=== PATIENT | female | born 1990 | race Caucasian/White ===

== ENCOUNTER 2020-05-22 19:28 | Emergency (ER) | payer OTHER ==
--- OUTSIDE RECORDS SUMMARY | 2020-05-22 19:29 | XMS REPORT | Summary of Care ---
:1990 Author Organization [facility] Address [address] [place] [address] Care Team Providers Name Role Phone Vic Mcdonnell Primary Care Provider Encounter Details Date Type Department Care Team Description 03/02/2020 Letter (Out) ACCESS CENTER Belgica Dean, RN [address] [place] [phone] [place] [address] Allergies Active Allergy Reactions Severity Noted Date Comments Penicillins Hives 12/13/2014 documented as of this encounter (statuses as of 03/02/2020) Medications Medication Sig Dispensed Refills Start Date End Date Status traMADOL (ULTRAM) 50 Take 100 mg by 0 Active mg tablet mouth every 6 (six) hours as needed. dextroamphetamine-amph Take 30 mg by 0 Active etamine (ADDERALL) 30 mouth daily. mg tablet ALPRAZolam (XANAX) 2 Take 2 mg by mouth 0 Active mg tablet as needed for Sleep. naproxen 500 mg Take 500 mg by 0 Active tabletIndications: mouth 2 (two) abdominal/camp guard 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 Indications: abdominal/camp guard pain documented as of this encounter (statuses as of 03/02/2020) Active Problems Problem Noted Date Chronic pelvic pain in female 10/17/2015 documented as of this encounter (statuses as of 03/02/2020) Social History Tobacco Use Types Packs/Day Years Used Date Former Smoker Smokeless Tobacco: Never Used Comments: 4 ppy Alcohol Use Drinks/Week oz/Week Comments No 0 Standard drinks or equivalent 0.0 Sex Assigned at Date Recorded Not on file COVID-19 Exposure Response Date Recorded In the last month, have you been in contact with No / Unsure 02/29/2020 8:56 AM CDT someone who was confirmed or suspected to have Coronavirus / COVID-19? documented as of this encounter Last Filed Vital Signs Not on filedocumented in this encounter Plan of Treatment Date Type Specialty Care Team Description 03/04/2020 Hospital Encounter Surgery Cristobal Vallejo MD [address] [place] [address] [phone] 03/04/2020 Anesthesia Event Surgery Zach Onofre C [address] 77 [phone] 03/04/2020 Surgery Surgery Andriy Vallejo MD [facility] [address] [place] [address] [phone] Health Maintenance Due Date Last Done Comments VARICELLA VACCINES (1 of 2 - 11/29/1991 2-dose childhood series) Depression Screening 2002 DTaP,Tdap,and Td Vaccines (1 - 2009 Tdap) PAP SMEAR 11/29/2011 INFLUENZA VACCINE (#1) 2020 PNEUMOCOCCAL 0-64 YEARS COMBINED Aged Out No longer eligible based on SERIES patient's age to complete this topic documented as of this encounter Results Not on filedocumented in this encounter Insurance Payer Benefit Plan / Subscriber ID Effective Phone Address Michelle [employer] Group Dates [facility] [id number] 2017-Rui [phone] [address] [employer] [facility] [employer] nt [phone] [place] [address] documented as of this encounter
--- OUTSIDE RECORDS SUMMARY | 2020-05-22 19:29 | XMS REPORT | Continuity of Care Document ---
:1990 Author Organization [facility] t Address [address] [place] [address] Care Team Providers Name Role Phone Genevieve WEST, Jacque Attending Clinician Jermaine JARAMILLO, Belgica Martinez Attending Clinician Unavailable Shannan, Paty Main Attending Clinician Unavailable Genevieve WEST Admitting Clinician Problems This patient has no known problems. Allergies, Adverse Reactions, Alerts This patient has no known allergies or adverse reactions. Medications This patient has no known medications. Procedures This patient has no known procedures. 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
--- OUTSIDE RECORDS SUMMARY | 2020-05-22 19:29 | XMS REPORT | Summary of Care ---
:1990 Author Organization [facility] Address [address] [place] [address] Care Team Providers Name Role Phone Vic Mcdonnell Primary Care Provider Reason for Visit Reason Comments LAB WORK Auth/Cert Status Reason Specialty Diagnoses / Referred By Referred To Procedures Contact Contact Clinical Medical Diagnoses Endometriosis of pelvic peritoneum Endometriosis of pelvic peritoneum [N80.3] [facility] Lab Laboratory Procedures COVID-19 (ID NOW RAPID TESTING) COVID-19 (ID NOW RAPID TESTING) [[id number]] [address] [place] [address] Encounter Details Date Type Department Care Team Description 02/29/2020 Postdoctoral Research Associate Visit [facility] Gibran Vallejo MD [address] [place] [address] Pre-op testing Professional Office Pob, Adc Lab Main (Primary Dx) Building Phlebotomy Lab Professional Office Building [address] [facility] , [address] [place] [address] Allergies Active Allergy Reactions Severity Noted Date Comments Penicillins Hives 12/13/2014 documented as of this encounter (statuses as of 02/29/2020) Medications Medication Sig Dispensed Refills Start Date [...] by 0 Active tabletIndications: mouth 2 (two) 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 Indications: abdominal/marketing communications specialist pain documented as of this encounter (statuses as of 02/29/2020) Active Problems Problem Noted Date Chronic pelvic pain in female 10/17/2015 documented as of this encounter (statuses as of 02/29/2020) Social History Tobacco Use Types Packs/Day Years [...] Signs Not on filedocumented in this encounter Nursing Notes Kaity Le - 02/29/2020 8:45 AM CDT Venipuncture collection performed by clean technique on the left forearm(s). Total of 1 attempts were made. Slight pressure and a bandage/dressing were applied to the site(s). The patient experienced no complications. The following specimens were processed according to instructions and sent to [facility] laboratories per lab order on 02/29/20: LT BLUE SST RED 1 LAV PPT DK GREEN (LiHep) DK GREEN (SodH) ROSALES DK BLUE (K2) DK BLUE (S) ACD Blood Culture NIPT/NTD Patient has been identified by and name and was provided with cup, antiseptic towelette, and clean catch instructions. 1 urine specimen(s) sent. 1 Unpreserved Urine Culture Aptima tube Other urine documented in this encounter Plan of Treatment Date Type Specialty Care Team Description 03/04/2020 Hospital Encounter Surgery Cristobal Vallejo MD [address] [place] [address] [phone] 03/04/2020 Anesthesia Event Surgery Zach Onofre, [place] [address] [place], [place] [address] [phone] 03/04/2020 Surgery Surgery Andriy Vallejo MD [facility] [address] [place] [address] [phone] Name Type Priority Associated Diagnoses Date/Ti me COVID-19 (PCR MOLECULAR LAB Routine Pre-op testing 9:23 AM CDT TESTING) URINALYSIS LAB Routine Pre-op testing 02/29/2020 9 :20 AM CDT Name Type Priority Associated Diagnoses Order S chedule COVID-19 (PCR MOLECULAR LAB Routine Pre-op testing Ex pected: 02/29/2020, TESTING) Expires: 2020 URINALYSIS LAB Routine Pre-op testing Expected: 09/2019, Expires: 2020 Type and Screen - LAB Routine Pre-op testing Expected : 02/29/2020, Expires: 2020 Health Maintenance Due Date Last Done Comments VARICELLA VACCINES (1 of 2 - 11/29/1991 2-dose childhood series) Depression Screening 2002 DTaP,Tdap,and Td Vaccines (1 - 2009 Tdap) PAP SMEAR 11/29/2011 INFLUENZA VACCINE (#1) 2020 PNEUMOCOCCAL 0-64 YEARS COMBINED Aged Out No longer eligible based on SERIES patient's age to complete this topic documented as of this encounter Procedures Procedure Name Priority Date/Time Associated Diagnosis Comme nts CBC WITH DIFF Routine 02/29/2020 9:32 AM Pre-op testing Resul ts for this CDT procedure are i n the results section . documented in this encounter Results CBC WITH DIFF (02/29/2020 9:32 AM CDT) Pathologist Sig nature WBC 5.70 4.30 - 11.10 [facility] 10*3/L [facility] RBC 4.87 3.93 - 5.25 [facility] 10*6/L [facility] HGB 14.3 11.6 - 15.0 [facility] g/dL HOSPITAL LAB[facility] HCT 44.6 35.7 - 45.2 % [facility] MCV 91.6 80.6 - 95.[address] [facility] MCH 29.4 25.9 - 32.[address] [facility] MCHC 32.1 31.6 - 35.1 [facility] g/dL [facility] RDW-SD 44.7 39.0 - 49.[address] [facility] RDW-CV 13.2 12.0 - 15.5 % [facility] PLT 319 166 - 358 [facility] 10*3/L [facility] MPV 10.3 9.5 - 12.[address] [facility] NRBC/100 WBC 0.0 0.0 - 10.0 /100 [facility] WBCs [facility] NRBC x10^3 <0.01 10*3/L [facility] GRAN MAT (NEUT) % 51.3 % [facility] IMM GRAN % 0.40 % [facility] LYMPH % 36.0 % [facility] MONO % 8.6 % [facility] EOS % 1.9 % [facility] BASO % 1.8 % [facility] GRAN MAT x10^3(ANC) 2.93 1.88 - 7.09 [facility] 10*3/uL [facility] IMM GRAN x10^3 <0.03 0.00 - 0.06 [facility] 10*3/uL [facility] LYMPH x10^3 2.05 1.32 - 3.29 [facility] 10*3/uL [facility] MONO x10^3 0.49 0.33 - 0.92 [facility] 10*3/uL [facility] EOS x10^3 0.11 0.03 - 0.39 [facility] 10*3/uL [facility] BASO x10^3 0.10 (H) 0.01 - 0.07 [place] [address]*3/uL [facility] Specimen Blood Performing Organization Address City/State/Zipcode Phone Number [facility] CLIA: [id number] [place] [address] documented in this encounter Visit Diagnoses Diagnosis Pre-op testing - Primary Preoperative examination, unspecified Endometriosis of pelvic peritoneum Abdominal pain, left lower quadrant documented in this encounter Insurance Payer Benefit Plan / Subscriber ID Effective Phone Address [employer] Group Dates HIM [facility] [id number] 2017-Rui [phone] [address] [employer] [phone] [place] [address] ([place]) [place] [address] documented as of this encounter
--- OUTSIDE RECORDS SUMMARY | 2020-05-22 19:29 | XMS REPORT | Summary of Care ---
:1990 Author Organization [facility] Address [address] [place] [address] Care Team Providers Name Role Phone Vic Mcdonnell Primary Care Provider Reason for Visit Reason Comments LAB WORK Auth/Cert Status Reason Specialty Diagnoses / Referred By Referred To Procedures Contact Contact Clinical Medical Diagnoses Endometriosis of pelvic peritoneum Endometriosis of pelvic peritoneum [N80.3] [facility] Lab Laboratory Procedures COVID-19 (ID NOW RAPID TESTING) COVID-19 (ID NOW RAPID TESTING) [[id number]] [address] [place] [address] Encounter Details Date Type Department Care Team Description 02/29/2020 Laboratory Only [facility] Andriy Vallejo MD [address] [place] [address] Pre-operative Phlebotomy Only, [facility] Test clearance [facility] [address] [place] [address] Allergies Active Allergy Reactions Severity [...] by 0 Active tabletIndications: mouth 2 (two) abdominal/groundskeeper porter 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 Indications: abdominal/groundskeeper porter pain documented as of this encounter (statuses [...] encounter Nursing Notes Kaity Le - 02/29/2020 8:30 AM CDTcovid documented in this encounter Plan of Treatment Date Type Specialty Care Team Description 03/04/2020 Hospital Encounter Surgery Cristobal Vallejo MD [address] [place] [address] 03/04/2020 Anesthesia Event Surgery Zach Onofre, [place] [address] 77 [phone] 03/04/2020 Surgery Surgery Andriy Vallejo MD [facility] [address] [place] [address] [phone] Health Maintenance Due Date Last Done Comments [...] Results Not on filedocumented in this encounter Visit Diagnoses Diagnosis Pre-operative clearance Preoperative examination, unspecified Endometriosis of pelvic peritoneum Abdominal pain, left lower quadrant documented in this encounter Additional Health Concerns Infection Onset Date Last Indicated Resolved Time COVID-19 Rule Out 02/29/2020 02/29/2020 documented as of this encounter Insurance Payer Benefit Plan / Subscriber ID Effective Phone Address T [facility] Group Dates [facility] [id number] [facility] [phone] [address] [employer] [facility] [address] [facility] [phone] [place] [address] (Home) [place] [address] documented as of this encounter
--- OUTSIDE RECORDS SUMMARY | 2020-05-22 19:29 | XMS REPORT | Summary of Care ---
:1990 Author Organization [facility] Address [address] [place] [address] Care Team Providers Name Role Phone Vic Mcdonnell Primary Care Provider Reason for Visit Reason Comments LAB WORK Auth/Cert Status Reason Specialty Diagnoses / Referred By Referred To Procedures Contact Contact Clinical Medical Diagnoses Endometriosis of pelvic peritoneum Endometriosis of pelvic peritoneum [N80.3] [facility] Lab Laboratory Procedures COVID-19 (ID NOW RAPID TESTING) COVID-19 (ID NOW RAPID TESTING) [[id number]] [address] [place] [address] Encounter Details Date Type Department Care Team Description 02/29/2020 Residence Supervisor Visit [facility] Gibran Vallejo MD [address] [place] [address] Pre-op testing Professional Office Pob, Adc Lab Main (Primary Dx) Building Phlebotomy Lab Professional Office Building [address] [facility] , [address] [place] [address] Allergies Active Allergy Reactions Severity [...] by 0 Active tabletIndications: mouth 2 (two) 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 Indications: abdominal/inspector missile pain documented as of this encounter (statuses [...] processed according to instructions and sent to [facility] laboratories per lab order on 02/29/20: LT [...] 03/04/2020 Hospital Encounter Surgery Cristobal Vallejo MD [address] [place] [address] [phone] 03/04/2020 Anesthesia Event Surgery Zach Onofre, [place] [address] [place], [place] [phone] 03/04/2020 Surgery Surgery Andriy Vallejo MD [facility] [address] [place] [address] [phone] Name Type Priority Associated Diagnoses Date/Ti me COVID-19 (PCR MOLECULAR LAB Routine Pre-op testing 9:23 AM CDT TESTING) Name Type Priority Associated Diagnoses Order S [...] Sig nature WBC 5.70 4.30 - 11.10 [facility] 10*3/L [facility] RBC 4.87 3.93 - 5.25 [facility] 10*6/L [facility] HGB 14.3 11.6 - 15.0 [facility] g/dL HOSPITAL LAB[facility]ATORY HCT 44.6 35.7 - 45.2 % [facility] MCV 91.6 80.6 - 95.5 fL [facility] MCH 29.4 25.9 - 32.8 pg [facility] MCHC 32.1 31.6 - 35.1 [facility] g/dL [facility] RDW-SD 44.7 39.0 - 49.9 fL [facility] RDW-CV 13.2 12.0 - 15.5 % [facility] PLT 319 166 - 358 [facility] 10*3/L [facility] MPV 10.3 9.5 - 12.9 fL [facility] NRBC/100 WBC 0.0 0.0 - 10.0 /100 [facility] WBCs [facility] NRBC x10^3 <0.01 10*3/L [facility] GRAN MAT (NEUT) % 51.3 % [facility] IMM GRAN % 0.40 % [facility] LYMPH % 36.0 % [facility] MONO % 8.6 % [facility] EOS % 1.9 % [facility] BASO % 1.8 % [facility] GRAN MAT x10^3(ANC) 2.93 1.88 - 7.09 [facility] 10*3/uL [facility] IMM GRAN x10^3 <0.03 0.00 - 0.06 [facility] 10*3/uL [facility] LYMPH x10^3 2.05 1.32 - 3.29 [facility] 10*3/uL [facility] MONO x10^3 0.49 0.33 - 0.92 [facility] 10*3/uL [facility] EOS x10^3 0.11 0.03 - 0.39 [facility] 10*3/uL [facility] BASO x10^3 0.10 (H) 0.01 - 0.07 [facility] 10*3/uL [facility] Specimen Blood Performing Organization Address City/State/Zipcode Phone Number [facility] CLIA: [id number] [place] [address] documented in this encounter Visit Diagnoses Diagnosis Pre-op testing - Primary Preoperative examination, unspecified Endometriosis of pelvic peritoneum Abdominal pain, left lower quadrant documented in this encounter Insurance Payer Benefit Plan / Subscriber ID Effective Phone Address T [employer]pe Group Dates HIM [facility] [id number] 2017-Rui [phone] [address] [employer] [phone] [place] [address] documented as of this encounter
--- OUTSIDE RECORDS SUMMARY | 2020-05-22 19:30 | XMS REPORT | Summary of Care ---
:1990 Author Organization [facility] - Health Address [address] [place] [id number] Care Team Providers Name Role Phone Vic Mcdonnell Primary Care Provider Reason for Visit Auth/Cert Status Reason Specialty Diagnoses / Procedures Referred By [place]wick ontact Referred To Contact Surgery Diagnoses Endometriosis of pelvic peritoneum Left lower quadrant pain Endometriosis of pelvic peritoneum [N80.3] Abdominal pain, left lower quadrant [R10.32] Adc Pre/P acu/Post Procedures [facility] CODING HELP ND LAP,FULGURATE/EXCISE LESIONS ND REOPEN FALLOPIAN TUBE,CHROMOTUBATION SALPINGECTOMY 04017 - ND LAP,FULGURATE/EXCISE LESIONS 19824 - ND REOPEN FALLOPIAN TUBE,CHROMOTUBATION [address] [place], [place] [address] Phone: Fax: Encounter Details Date Type Department Care Team Description 03/04/2020 Hospital Encounter [facility] [place], Abdomina l pain, left [facility] MD Jacque lower quadrant [address] [facility] [address] [place] [address] [place], [place] [id number] Allergies Active Allergy Reactions Severity Noted Date Comments Penicillins Hives 12/13/2014 documented as of this encounter (statuses as of 03/05/2020) Medications Medication Sig Dispensed Refills Start Date [...] by 0 Active tabletIndications: mouth 2 (two) 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 documented as of this encounter (statuses as of 03/05/2020) Active Problems Problem Noted Date Abdominal pain, left lower quadrant 03/04/2020 Endometriosis of the cul-de-sac 03/04/2020 Secondary dysmenorrhea 03/04/2020 Irregular bleeding, encased IUD 03/04/2020 Chronic pelvic pain in female 10/17/2015 documented as of this encounter (statuses as of 03/05/2020) Social History Tobacco Use Types Packs/Day Years Used Date Former Smoker Smokeless Tobacco: Never Used Comments: 4 ppy Alcohol Use Drinks/Week oz/Week Comments No 0 Standard drinks or equivalent 0.0 Sex Assigned at Date Recorded Not on file COVID-19 Exposure Response Date Recorded In the last month, have you been in contact with No / Unsure 03/04/2020 7:02 AM CDT someone who was confirmed or suspected to have Coronavirus / COVID-19? documented as of this encounter Last Filed Vital Signs Vital Sign Reading Time Taken Comments Blood Pressure 99/62 03/04/2020 12:00 PM CDT Pulse 59 03/04/2020 10:18 AM CDT Temperature 36.2 C (97.2 F) 03/04/2020 10:18 AM CDT Respiratory Rate 20 03/04/2020 12:44 PM CDT Oxygen Saturation 99% 03/04/2020 12:44 PM CDT Inhaled Oxygen Concentration - - Weight 47.6 kg (104 lb 15 oz) 02/26/2020 1:31 PM CDT Height 160 cm (5' 2.99") 02/26/2020 1:31 PM CDT Body Mass Index 18.59 02/26/2020 1:31 PM CDT documented in this encounter Discharge Summaries Jacque Vallejo MD - 03/04/2020 10:37 AM CDTPatient recovered from GETA in the OR and sent to PACU. Stable hemodynamically. Pain and nausea control adequate. Has postop discharge instructions printed sheet given. Has postop appointment for office follow up made already. Discharge home, regular diet, ambulate as tolerated. All instructions when to call were given as well. documented in this encounter Discharge Instructions Bonita Bhatia RN - 03/04/2020 Patient Discharge Instructions Discharge date: 03/04/2020 Procedure(s): Procedure(s): SALPINGECTOMY INTRAUTERINE DEVICE REMOVAL LAPAROSCOPIC EXCISION OF ENDOMETRIOSIS HYSTEROSCOPY Discharge Orders ACTIVITY: As Tolerated Regular Diet; Texture: Regular Texture Regular Diabetic: No Follow instructions as indicated below: 1. The medication that was used will be acting in your system for the next 24 hours, so you might feel a little drowsy, with impaired judgment and or motor function. This feeling should go wear off. Because the medication is still in your system for the next 24 hours you SHOULD NOT: Drive a car, operate machinery or power tool. Drink any alcohol beverages (including beer or wine). Make any important decisions or sign any legal documents. 2. You should rest the remainder of the day and not engage in any physical activity. Move slowly today. After lying down, sit on the edge of the bed for a moment before standing. YOU ARE RESPONSIBLEFOR HAVING SOMEONE AT HOME WITH YOU DURING THE AFTERNOON AND NIGHT IMMEDIATELY FOLLOWING YOUR SURGERY. Patient should cough and deep breathe every 2-4 hours while awake to avoid respiratory complications. 4. Lifting: see handout 5. Weight: In general, sudden weight gains or losses should be reported to your provider. Cardiac patients should weigh daily and notify their provider for a weight gain of 3 pounds per day or 5 pounds per week. 6. Tobacco Avoidance: Follow recommendations below 7. Because the medications used could procedure some residual nausea and vomiting after you go home,you should eat lightly today, starting with clear liquids (broth, soft drinks, apple juice, jello) and toast or crackers, progressing to bland solid foods and then to your normal diet as tolerated, unle ss otherwise stated by your surgeon. If you get sick, wait a couple of hours and then begin to eat. After 24 hours the nausea should be gone. 8. You may experience some pain and your physician will advise you on what to take for discomfort. This should be taken as directed. If the pain is not relieved, contact your physician. You may alsohave a sore throat from the airway that was in place. You may uses lozenges, throat spray (such as C hloraseptic), or warm salt water gargles for symptomatic relief. 9. If you feel warm, take your temperature. If it is 101 degrees or above call your physician. 10. If you are unable to urinate within five hours after your procedure, call your physician. 11. The type of surgery performed will determine how much bleeding (if any) to expect. Normally, some spotting might occur. If your dressing pad becomes saturated, notify your physician. Elevate surgical site, if applicable, to reduced swelling and pain. 12. Wound/dressing care: see handout Tips on preventing a surgical site infection.. Dont smoke. It is best to quit at least 30 days before surgery, but quitting after surgery is also helpful. If you are diabetic, keep your blood sugar well controlled. WASH YOUR HANDS. Keep your wound clean and remember to wash your hands before and after contact with the area. All health care workers should also wash their hands or use an alcohol based hand rub prior to examining you. If antibiotics are prescribed, take them as directed. Finish the entire course of antibiotics. Call your doctor if you have signs of infection: ? Increased tenderness at the surgical site ? Red streaks or increased redness of the area ? Bad-smelling discharge from the incision ? Fever of 101F or higher ? General tired feeling that doesnt improve 13. Other discharge instructions: see handout Take Home Medications These are medications ordered for you by your healthcare provider. Do not take any other medications or supplements unless advised by your healthcare provider. Current Discharge Medication List CONTINUE these medications which have NOT CHANGED Details naproxen 500 mg tablet Take 500 mg by mouth 2 (two) times 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 dextroamphetamine-amphetamine (ADDERALL) 30 mg tablet Take 30 mg by mouth daily. traMADOL (ULTRAM) 50 mg tablet Take 100 mg by mouth every 6 (six) hours as needed. Follow-up appointments: Call Dr. Vallejo's office for follow up appt For questions regarding follow-up instructions call the Healthcare Hotline at or For worsening symptoms/changing condition/problems or questions: Non-emergency/urgent: Call the Healthcare Hotline at or or Emergency: Go to the closest emergency room or call 911 If you receive the patient satisfaction survey by mail please complete and return and let us know how we are doing. TOBACCO AVOIDANCE Exposure to tobacco either from smoking or from second hand (environmental) smoke or smokeless tobacco (snuff) is damaging to your health. This information is to encourage everyone to avoid tobacco exposure. It is recommended that you: ? If you smoke or use smokeless tobacco, we encourage you to quit. ? If you have already quit smoking, continue your good work! ? If you do not smoke or use smokeless tobacco, do not start. ? Avoid secondhand smoke. Additional Resources You may want to contact these organizations for further information on smoking and how to quit. [place] [employer], http://www.lungusa.org/stop-smoking/ [employer], http://www.cancer.org/Healthy/StayAwayfromTobacco/index [place] [employer], http://www.heart.org/HEARTORG/GettingHealthy/QuitSmoking/Quit-Smoking_UCM _001085_SubHomePage.jsp documented in this encounter Miscellaneous Notes Brief Op Note - Jacque Vallejo MD - 03/04/2020 8:15 AM CDT BRIEF OPERATIVE NOTE Date of Surgery: 03/04/2020 Surgeon(s) and Role: * Jacque Vallejo MD - Primary Pre-Op Diagnosis: Endometriosis of pelvic peritoneum [N80.3] Abdominal pain, left lower quadrant [R10.32] Dysmenorrhea Post-Op Diagnosis Codes: * Endometriosis of pelvic peritoneum [N80.3] * Abdominal pain, left lower quadrant [R10.32] Omental adhesions, bilateral ovarian adhesions, patent tubes, Encased IUD with granulation Procedures: Hysteroscopy, removal of IUD, Laparoscopy, Lysis of adhesions(50% case), bilateral ovariolysis, endometriosis excision, chromotubation CPT: UTMBCODINGHE, UTMBCODINGHE, UTMBCODINGHE, UTMBCODINGHE,75821, 08838, 53842, 80260, 22755, 92970, 84432, 26400 Any Complications Encounters: none Estimated Blood Loss: Minimal (<50) Specimens Removed: ID Type Source Tests Collected by Time Destination 1 : RIGHT HAN OVARIAN ADHESION Tissue ENDOMETRIUM SURGICAL PATHOLOGY EXAM Jacque Vallejo MD 03/04/2020 0922 2 : RIGHT LATERAL WALL ENDOMETRIOSIS Tissue ENDOMETRIUM SURGICAL PATHOLOGY EXAM Jacque Vallejo MD 03/04/2020 0923 3 : RIGHT URETEROSACRAL ENDOMETRIOSIS Tissue ENDOMETRIUM SURGICAL PATHOLOGY EXAM Jacque Vallejo MD 03/04/2020 0925 4 : CULD-DE-SAC ENDOMETRIOSIS Tissue ENDOMETRIUM SURGICAL PATHOLOGY EXAM Jacque Vallejo MD 03/04/2020 0938 5 : IUD FOR IDENTIFICATION ONLY Other OTHER SURGICAL PATHOLOGY EXAM Jacque Vallejo MD 03/04/2020 1010 * No implants in log * Patient's Condition: stable Findings: endometriostic implant, right lat wall, , Rt USL and CDS peritoneum Any other important information: none Please see dictated operative report for additional detail. documented in this encounter Plan of Treatment Name Type Priority Associated Diagnoses Date/Ti sc SURGICAL PATHOLOGY EXAM LAB STAT 01/2020 9:22 AM CDT Name Type Priority Associated Diagnoses Order S chedule SURGICAL PATHOLOGY EXAM LAB Routine Rele ase Upon Ordering for 1 Occurrences s tarting 03/04/2020 Health Maintenance Due Date Last Done Comments VARICELLA VACCINES (1 of 2 - 2-dose childhood series) 11/29/1991 PNEUMOCOCCAL 0-64 YEARS COMBINED SERIES (1 of 3 - 1996 PCV13) DTaP,Tdap,and Td Vaccines (1 - Tdap) 2009 PAP SMEAR 11/29/2011 INFLUENZA VACCINE (#1) 2020 Depression Screening 03/04/2021 03/04/2020 documented as of this encounter Procedures Procedure Name Priority Date/Time Associated Comments Diagnosis HB ABO GROUPING Routine 03/04/2020 7:18 Results for this AM CDT procedure are i n the results section. POCT TEST Routine 03/04/2020 7:00 Resu lts for this AM CDT procedure are i n the results section. CONSENT/REFUSAL FOR Routine 02/29/2020 9:10 DIAGNOSIS AND TREATMENT AM CDT ASSIGNMENT OF BENEFITS Routine 02/29/2020 9:10 AM CDT CONSENT/REFUSAL FOR Routine 02/29/2020 8:55 DIAGNOSIS AND TREATMENT AM CDT ASSIGNMENT OF BENEFITS Routine 02/29/2020 8:54 AM CDT [facility] PATIENT FINANCIAL Routine 02/29/2020 8:54 POLICY AM CDT NO SHOW OR MISSED Routine 02/29/2020 8:54 APPOINTMENT POLICY AM CDT ACKNOWLEDGEMENT NOTICE OF PRIVACY Routine 02/29/2020 8:53 PRACTICES AM CDT CONSENT/REFUSAL FOR Routine 02/29/2020 8:53 DIAGNOSIS AND TREATMENT AM CDT ASSIGNMENT OF BENEFITS Routine 02/29/2020 8:53 AM CDT DSU PRE-OP Routine 02/28/2020 12:01 AM CDT documented in this encounter Results Type and Screen - ONCE Routine (03/04/2020 7:18 AM CDT) Pathologist Sig nature ABO & RH A Positive LAB Comment: Performed at [facility] Laboratory Services - [facility] Blood Bank [address] [place], [place] [id number] Toll Free: [phone] CLIA No. [id number] IAT Negative LAB Comment: Performed at [facility] Laboratory [facility] - [facility] Blood [facility] [address] [place], [place] [id number] Toll Free: [phone] CLIA No. [id number] Specimen Blood - VENOUS Performing Organization Address City/State/Zipcode Phone Number BLD LAB POCT Test (03/04/2020 7:00 AM CDT) Pathologist Sig nature POCT PREG Negative On board controls acceptable Yes with C Line POCT PREG LOT # [id number] POCT PREG TEST DATE Specimen Urine - URINE, CLEAN CATCH documented in this encounter Visit Diagnoses Diagnosis Chronic pelvic pain in female - Primary Unspecified symptom associated with fema le genital organs Abdominal pain, left lower quadrant Endometriosis of the cul-de-sac Endometriosis of pelvic peritoneum Secondary dysmenorrhea Dysmenorrhea Irregular bleeding, encased IUD Unspecified disorder of menstruation and other abnormal bleeding from female genital tract documented in this encounter Administered Medications Medication Order MAR Action Action Date Dose Rate Site bupivacaine (preserv free) Given 03/04/2020 9:50 AM CDT 20 mL Abdomen (SENSORCAINE MPF) 0.25 % (2.5 mg/mL) injection PRN, Starting Tu03/04/20 at 0950, Until Discontinued, Routine, Intra-op Given 03/04/2020 8:15 AM CDT 30 mL Abdo men HYDROmorphone (DILAUDID) injection 0.2 m g Given 03/04/2020 11:11 AM CDT 0.5 mg 0.2 mg, Slow IV Push, Q5MIN PRN, 10 doses, Starting Tue03/04/20 at 1023, Until Discontinued, Routine, Pain (scale 7-10), PACU, Use approved by (Faculty): PACU USE -ANESTHESIA SERVICE-HYDROMORPHONE INJECTIONS levonorgestreL (MIRENA) IUD Given 03/04/2020 9:53 AM CDT 1 Device See Comment PRN, Starting Tue03/04/20 at 0953, Until Discontinued, Routine, Intra-op methylene blue 1 % (10 mg/mL) Given 03/04/2020 9:44 AM CDT 10 D rops See Comment injection PRN, Starting Tue03/04/20 at 0944, Until Discontinued, Routine, Intra-op ondansetron (ZOFRAN (PF)) injection 4 mg 4 mg, Slow IV Push, PRN, 1 dose, Startin g Tue03/04/20 at 1023, Until Discontinued, Routine, Nausea and Vomiting (N/V), PACU Medication Order MAR Action Action Date Dose Rate Site FENTanyl PF (SUBLIMAZE (PF)) Given 03/04/2020 10:40 AM CDT 25 mc g injection 25 mcg 25 mcg, Slow IV Push, Q5MIN PRN, 4 doses, Starting Tue03/04/20 at 1023, Until Tue03/04/20 at 1040, Routine, Pain (scale 4-6), PACU Given 03/04/2020 10:35 AM CDT 25 mcg Given 03/04/2020 10:30 AM CDT 25 mcg HYDROcodone-acetaminophen (NORCO) 10-325 Given 03/04/2020 11 :03 AM CDT 1 tablet mg tablet 1 tablet 1 tablet, Oral, PRN, 1 dose, Starting Tue03/04/20 at 1018, Until Tue03/04/20 at 1103, Routine, Pain (scale 7-10), DSU Recovery ibuprofen (IBU) tablet 800 mg Given 03/04/2020 11:40 AM CDT 800 mg 800 mg, Oral, PRN, 1 dose, Starting Tue03/04/20 at 1018, Until Tue03/04/20 at 1140, Routine, Pain (scale 1-3), DSU Recovery lactated ringers IV infusion New Bag 03/04/2020 7:16 AM CDT 1,000 mL 20 mL/hr 1,000 mL at 20 mL/hr, 1,000 mL, IV Infusion, ONCE, 1 dose, Tue03/04/20 at 0700, Routine, DSU Pre-op scopolamine transdermal (TRANSDERM-SCOP) Given 03/04/2020 7:06 AM CDT 1.5 mg patch 1.5 mg 1.5 mg, Topical, Administer over 72 Hours, ONCE, 1 dose, Tue03/04/20 at 0700, Routine documented in this encounter Insurance Payer Benefit Plan / Subscriber ID Effective Phone Address T sadi Group Dates [facility] [id number] 2017-Rui [phone] [address] [employer] [facility] [employer] [id number] [place] [address] ([place]) [place] [address] documented as of this encounter
[2020-05-22 20:01] LABS: Absolute Lymphocytes (CBC) 1.8 K/uL (0.7-4.9); Basophils % 0.4 % (0-1.3); Hematocrit 36.2 % (36.0-45.0); Lymphocytes % 10.7 % (15.3-44.8); MPV 10.3 fL (7.6-11.3); RBC Red Blood Cell Count 4.06 M/uL (3.86-4.86)
[2020-05-22] MEDS ORDERED: ONDANSETRON 4 MG/2 ML VIAL ONE (20:02)
[2020-05-22] MEDS ORDERED: NA CHLORIDE 0.9% 250 ML ONE (20:02)
[2020-05-22] MEDS ORDERED: PANTOPRAZOLE 40 MG INJ ONE (20:02)
[2020-05-22] MEDS ORDERED: NA CHLORIDE 0.9% 2,000 ML ONE (20:02)
[2020-05-22 20:09] LABS: Protime INR 1.26
[2020-05-22 20:21] LABS: ALT/SGPT 13 U/L (12-78); AST/SGOT 11 U/L (15-37); Albumin 3.6 g/dL (3.4-5.0); Alkaline Phosphatase 44 U/L (45-117); BUN Blood Urea Nitrogen 36 mg/dL (7-18); Bicarbonate 21 mmol/L (21-32); Bilirubin Direct < 0.1 mg/dL (0-0.2); Bilirubin Total 0.3 mg/dL (0.2-1.0); Glucose Level 141 mg/dL (74-106); Potassium 4.7 mmol/L (3.5-5.1); Protein, Total 6.5 g/dL (6.4-8.2); Sodium Level 141 mmol/L (136-145); Troponin (Emerg Dept Use Only) < 0.02 ng/mL (0.0-0.045)
[2020-05-22] MEDS ORDERED: ACETAMINOPHEN 500 MG TAB ONE (20:23)
[2020-05-22] MEDS ORDERED: FENTANYL CITR 100 MCG/2 ML ONE (21:20)
[2020-05-22] MEDS ORDERED: NA CHLORIDE 0.9% 1,000 ML ONE (21:21)
--- NOTE | 2020-05-22 21:22 | RAD REPORT ---
EXAM DESCRIPTION: Coleen Single View05/22/2020 8:16 pm CLINICAL HISTORY: Chest pain COMPARISON: 2007 FINDINGS: Nodular opacity overlies the left lung base probably a nipple shadow. A pulmonary nodule is considered less likely. This can be confirmed with left nipple marker with oblique views of the est. Otherwise lungs appear clear. The heart is normal size
[2020-05-22 22:29] LABS: Urine Blood 3+ (NEG); Urine Glucose NEGATIVE (NEG); Urine Protein NEGATIVE (NEG); Urine pH 6.5 (5.0-7.0)
[2020-05-22 22:43] LABS: Barbiturates NEGATIVE (NEGATIVE); Benzodiazepines POSITIVE (NEGATIVE); Cocaine NEGATIVE (NEGATIVE); METHAMPHETAM POSITIVE (NEGATIVE); Methadone NEGATIVE (NEGATIVE); Opiates POSITIVE (NEGATIVE); Phencyclidine NEGATIVE (NEGATIVE); THC Cannibis POSITIVE (NEGATIVE)
--- NOTE | 2020-05-22 23:42 | EDPHYS ---
Physician Documentation [facility] Name: Rhona Curtis Age: 29 yrs Sex: Female : 1990 Arrival Date: 05/22/2020 Time: 19:29 Bed 4 Private MD: ED Physician Charles Alvarado HPI: 05/22 19:37 This 29 yrs old Female presents to ER via Unassigned with complaints of cp Vomiting Blood. 19:37 The patient presents to the emergency department vomiting blood, a large amount, bright cp red, with multiple such episodes. Onset: The symptoms/episode began/occurred 2 hour(s) ago. 19:37 Abdominal pain: located in the right upper quadrant and left upper quadrant. Associated cp signs and symptoms: Pertinent positives: diarrhea, syncope, Pertinent negatives: constipation, fever. PROPERTY CLAIM REP: 19:30 LMP N/A - Depo-provera Historical: - Allergies: 20:26 PENICILLINS; wh - PMHx: 20:26 Migraines; Endometriosis; wh - Immunization history:: Adult Immunizations up to date. - Social history:: Smoking status: Patient/guardian denies using. ROS: 19:39 Eyes: Negative for injury, pain, redness, and discharge. cp 19:39 Constitutional: Negative for fever. 19:39 Cardiovascular: Negative for chest pain. 19:39 Respiratory: Negative for cough, shortness of breath, wheezing. 19:39 Abdomen/GI: Positive for abdominal pain, nausea, vomiting, hematemesis, Negative for diarrhea, constipation. 19:39 Neuro: Positive for syncope, Negative for altered mental status. 19:39 All other systems are negative. Exam: 19:45 Head/Face: Normocephalic, atraumatic. cp 19:45 Constitutional: The patient appears alert, awake, non-toxic, well developed, well nourished, pale. 19:45 Eyes: Periorbital structures: appear normal, Conjunctiva: normal, no exudate, no injection, Sclera: no appreciated abnormality, Lids and lashes: appear normal, bilaterally. 19:45 ENT: External ear(s): are unremarkable, Nose: is normal, Mouth: Lips: moist, Oral mucosa: moist, Posterior pharynx: Airway: no evidence of obstruction, patent. 19:45 Chest/axilla: Inspection: normal, Palpation: is normal, no crepitus, no tenderness. 19:45 Cardiovascular: Rate: tachycardic, Rhythm: regular. 19:45 Respiratory: the patient does not display signs of respiratory distress, Respirations: cp normal, no use of accessory muscles, no retractions, labored breathing, is not present, Breath sounds: are clear throughout, no decreased breath sounds, no stridor, no wheezing. 19:45 Abdomen/GI: Inspection: abdomen appears normal, Palpation: abdomen is soft and non-tender, in all quadrants. 19:45 Neuro: Orientation: to person, place \T\ time. Mentation: is normal, Motor: moves all fours, strength is normal. 19:53 ECG was reviewed by the Attending Physician. cp 20:00 : Rectal exam: Stool: black, Guaiac testing: results were positive for occult blood. Vital Signs: 19:30 BP 113 / 46; Pulse 122; Resp 18; Temp 97.5; Pulse Ox 100% on R/A; Weight 53.98 kg; Height 5 ft. 3 in. (160.02 cm); 20:27 BP 96 / 45; Pulse 110; Resp 18; Pulse Ox 100% on R/A; wh 21:15 BP 112 / 56; Pulse 85; Resp 18; Pulse Ox 100% on R/A; 22:15 BP 110 / 50; Pulse 68; Resp 16; Pulse Ox 100% on R/A; 23:06 BP 94 / 49; Pulse 84; Resp 16; Pulse Ox 100% ; 05/23 00:00 BP 97 / 50; Pulse 79; Resp 18; Pulse Ox 100% on R/A; 01:15 BP 100 / 56; Pulse 78; Resp 18; Pulse Ox 100% ; 05/22 19:30 Body Mass Index 21.08 (53.98 kg, 160.02 cm) Procedures: 05/22 21:01 Central Line: the site was prepped with Betadine, in sterile fashion, a triple lumen cp catheter was inserted, in the right femoral vein, in 1 attempts. placement was verified, by blood return, the site was dressed with Tegaderm, using sterile technique, the patient tolerated the procedure, well. MDM: 19:38 Patient medically screened. 21:00 Data reviewed: vital signs, nurses notes, lab test result(s), EKG. cp 21:00 Test interpretation: by ED physician or midlevel provider: ECG, chest xray negative for cp infiltrates. Response to treatment: the patient's symptoms have mildly improved after treatment. Transition of care: After a detail discussion of the patient's case, care is transferred to Charles Alvarado MD. 05/22 19:35 Order name: Basic Metabolic Panel; Complete Time: 21:01 cp 05/22 19:35 Order name: CBC with Diff; Complete Time: 20:10 cp 05/22 20:10 Interpretation: Normal except: WBC 16.3; JEAN% 84.3; LYM% 10.7; NEUT A 13.8. cp 05/22 19:35 Order name: LFT's; Complete Time: 21:01 cp 05/22 19:35 Order name: Magnesium; Complete Time: 21:01 cp 05/22 19:35 Order name: PT-INR; Complete Time: 20:12 cp 05/22 19:35 Order name: Troponin (emerg Dept Use Only); Complete Time: 21:01 cp 05/22 19:35 Order name: XRAY Chest (1 view); Complete Time: 21:55 cp 05/22 19:35 Order name: Type And Screen; Complete Time: 21:01 cp 05/22 19:35 Order name: Ptt, Activated; Complete Time: 20:12 cp 05/22 20:50 Order name: Test, Serum mw2 05/22 20:51 Order name: Test Serum, Qualitat; Complete Time: 21:55 EDMS 05/22 21:04 Order name: ETOH Level; Complete Time: 21:55 cp 05/22 21:04 Order name: UDS; Complete Time: 22:59 cp 05/22 22:21 Order name: Urine Dipstick--Ancillary (enter results); Complete Time: 22:59 oe 05/22 19:35 Order name: EKG; Complete Time: 19:35 cp 05/22 19:35 Order name: Cardiac monitoring; Complete Time: 19:59 cp 05/22 19:35 Order name: EKG - Nurse/Tech; Complete Time: 19:59 cp 05/22 19:35 Order name: IV Saline Lock; Complete Time: 19:59 cp 05/22 19:35 Order name: Labs collected and sent; Complete Time: 19:59 cp 05/22 19:35 Order name: O2 Per Protocol; Complete Time: 19:59 cp 05/22 19:35 Order name: O2 Sat Monitoring; Complete Time: 19:59 cp 05/22 20:12 Order name: CT Abd/Pelvis - IV Contrast Only 05/22 19:35 Order name: IV; Complete Time: 19:59 cp EC:53 Rate is 108 beats/min. Rhythm is regular. MO interval is normal. QRS interval is cp normal. QT interval is normal. Interpreted by me. Reviewed by me. Administered Medications: 19:53 Drug: NS 0.9% 1000 ml Route: IV; Rate: 1 bolus; Site: left antecubital; 19:55 Drug: NS 0.9% 1000 ml Route: IV; Rate: 1 bolus; Site: right antecubital; 19:57 Drug: ProTONIX 40 mg Route: IVP; Site: right antecubital; 19:59 Drug: ProTONIX 8 mg/hr Route: IV; Rate: 25 ml/hr; Site: right antecubital; 20:00 Drug: Zofran (Ondansetron) 4 mg Route: IVP; Site: left antecubital; 20:12 Drug: Tylenol 1000 mg Route: PO; 21:20 Follow up: Response: No adverse reaction; Pain is unchanged, physician notified 21:14 Drug: fentaNYL (PF) 25 mcg Route: IVP; Site: right femoral; 05/23 00:00 Follow up: Response: No adverse reaction; Pain is decreased; RASS: Alert and Calm (0) 05/22 21:14 Drug: NS 0.9% 1000 ml Route: IV; Rate: 125 ml/hr; Site: right femoral; 05/23 01:40 Follow up: Response: No adverse reaction; IV Status: Infusion continued upon transfer Disposition: 04:41 Co-signature as Attending Physician, Charles Alvarado MD. mh7 Disposition: 05/22/20 23:40 Transfer ordered to [facility]. Diagnosis is Upper GI Bleed. - Reason for transfer: Higher level of care. - Accepting physician is Dr. Segal. - Condition is Stable. - Problem is new. - Symptoms have improved. Critical care time excluding procedures: 05/22 21:00 Critical care time: Bedside Care: 10 minutes, Consultation: 15 minutes, Family cp Intervention: 5 minutes. Total time: 30 minutes Signatures: Dispatcher [employer] EDSonali Oakley RN RN Ramón Ferreira PA PA cp Eli Pierson Shayne, Divya mw2 Charles Alvarado MD MD mh7 Corrections: (The following items were deleted from the chart) 19:55 19:37 Onset: The symptoms/episode began/occurred 1 hour(s) ago, cp cp 05/23 01:33 05/22 23:40 05/22/2020 23:40 Transfer ordered to [facility]. Diagnosis is mw2 Upper GI Bleed. Reason for transfer: Higher level of care. Accepting physician is Dr. Segal. Condition is Stable. Problem is new. Symptoms have improved. mh7
--- NOTE | 2020-05-22 23:42 | ER ---
Nurse's Notes [facility] Name: Rhona Curtis Age: 29 yrs Sex: Female : 1990 Arrival Date: 05/22/2020 Time: 19:29 Bed 4 Private MD: Diagnosis: Upper GI Bleed Presentation: 05/22 19:30 Chief complaint: EMS states: was toned for stomach pain, epigastric pain, chest wh pressure, vomiting of blood clots and blood. Pt was hypotensive and was noted for syncopal episode while doing position change per Pt father. Coronavirus screen: Client denies travel out of the [place] in the last 14 days. At this time, the client does not indicate any symptoms associated with coronavirus-19. Ebola Screen: Patient negative for fever greater than or equal to 101.5 degrees Fahrenheit, and additional compatible Ebola Virus Disease symptoms Patient denies exposure to infectious person. Initial Sepsis Screen: Does the patient meet any 2 criteria? HR > 90 bpm. Does the patient have a suspected source of infection? No. Patient's initial sepsis screen is negative. Risk Assessment: Do you want to hurt yourself or someone else? Patient reports no desire to harm self or others. Onset of symptoms was May 22, 2020. 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 - Social history:: Smoking status: Patient/guardian denies using. Screenin:30 Abuse screen: Denies threats or abuse. Denies injuries from another. Nutritional screening: No deficits noted. Tuberculosis screening: No symptoms or risk factors identified. Fall Risk None identified. Assessment: 19:40 General: Appears uncomfortable, Behavior is cooperative. Pain: Complains of pain in left upper quadrant and right upper quadrant. Neuro: Level of Consciousness is awake, alert, obeys commands, Oriented to person, place, time, situation, Appropriate for age. Cardiovascular: Capillary refill < 3 seconds. Respiratory: Airway is patent Respiratory effort is even, unlabored, Respiratory pattern is regular, symmetrical. GI: Abdomen is flat, non-distended, Abd is soft and non tender X 4 quads. Reports upper abdominal pain, diarrhea, epigastric pain, vomiting. : No signs and/or symptoms were reported regarding the genitourinary system. EENT: No signs and/or symptoms were reported regarding the EENT system. Derm: Skin is intact, is healthy with good turgor, Skin is pink, warm \T\ dry. normal. Musculoskeletal: Circulation, motion, and sensation intact. 20:28 Reassessment: Patient appears in no apparent distress at this time. No changes from previously documented assessment. Patient and/or family updated on plan of care and expected duration. Pain level reassessed. Patient is alert, oriented x 3, equal unlabored respirations, skin warm/dry/pink. 21:44 Reassessment: Patient and/or family updated on plan of care and expected duration. Pain ea level reassessed. Patient is alert, oriented x 3, equal unlabored respirations, skin warm/dry/pink. Pt returned from CT. 22:20 Reassessment: Patient appears in no apparent distress at this time. Patient and/or family updated on plan of care and expected duration. Pain level reassessed. Patient is alert, oriented x 3, equal unlabored respirations, skin warm/dry/pink. 23:20 Reassessment: Patient appears in no apparent distress at this time. Patient and/or family updated on plan of care and expected duration. Pain level reassessed. Patient is alert, oriented x 3, equal unlabored respirations, skin warm/dry/pink. Explained POC. 05/23 00:14 Reassessment: Report given to Dimitry Barron RN. 01:30 Reassessment: Patient appears in no apparent distress at this time. Patient and/or family updated on plan of care and expected duration. Pain level reassessed. Patient is alert, oriented x 3, equal unlabored respirations, skin warm/dry/pink. Vital Signs: 05/22 19:30 BP 113 / 46; Pulse 122; Resp 18; Temp 97.5; Pulse Ox 100% on R/A; Weight 53.98 kg; Height 5 ft. 3 in. (160.02 cm); 20:27 BP 96 / 45; Pulse 110; Resp 18; Pulse Ox 100% on R/A; wh 21:15 BP 112 / 56; Pulse 85; Resp 18; Pulse Ox 100% on R/A; wh 22:15 BP 110 / 50; Pulse 68; Resp 16; Pulse Ox 100% on R/A; wh 23:06 BP 94 / 49; Pulse 84; Resp 16; Pulse Ox 100% ; 05/23 00:00 BP 97 / 50; Pulse 79; Resp 18; Pulse Ox 100% on R/A; wh 01:15 BP 100 / 56; Pulse 78; Resp 18; Pulse Ox 100% ; 05/22 19:30 Body Mass Index 21.08 (53.98 kg, 160.02 cm) ED Course: 05/22 19:29 Patient arrived in ED. mw2 19:30 Ramón Cunha PA is PHCP. cp 19:30 Charles Alvarado MD is Attending Physician. cp 19:30 Patient has correct armband on for positive identification. Placed in gown. Bed in low wh position. Call light in reach. Side rails up X 1. vehicle monitor technician on. Pulse ox on. NIBP on. 19:30 Arm band placed on left wrist. wh 19:39 Eli Pierson is Primary Nurse. wh 19:40 Inserted saline lock: 20 gauge in left antecubital area, using aseptic technique. Blood wh collected. 20:14 Warm blanket given. socks given. fc 20:16 XRAY Chest (1 view) In Process Unspecified. EDMS 20:25 Triage completed. wh 20:45 Assisted provider with central line placement. Set up central line tray. Triple lumen fc line placed in right femoral. Line placed by Ramón LOMELI Placement verified by blood return, Dressed with Tape, Tegaderm, Blood was collected. Patient tolerated well. Before procedure, did Practitioner(s) obtain informed consent? Yes. Patient \T\ family education about procedure, CLABSI prevention and S/S of infection? Yes. Time-out/Briefing performed prior to start of procedure? Yes. Was handwashing/sanitizing done immediately prior to procedure? Yes. Was patient positioned to in a way to prevent air embolism? Yes. Was procedure site sterilized? Yes, with Was the site allowed to dry? Yes. Was local anesthetic and/or sedation utilized? No. During the procedure, did the Practitioner(s) maintain a sterile field? Yes. Were unused ports clamped during insertion? Yes. Was blood aspirated from each lumen? Yes. 20:55 Radiology exam delayed due to test not completed at this time. vm2 21:51 CT Abd/Pelvis - IV Contrast Only In Process Unspecified. EDMS 22:51 initiated transfer with Jailyn Zimmerman from [facility]. mw2 23:34 Jailyn Erasmo from [facility] called back asking for a 15 minute [place] [facility] extension. 23:40 administrative approval given by Jailyn Zimmerman/ patient has been accepted to [address] MICU/ Dr. Segal has accepted the patient in transfer/ report to be called to [phone]. 05/23 01:30 Patient transferred, IV remains in place. Administered Medications: 05/22 19:53 Drug: NS 0.9% 1000 ml Route: IV; Rate: 1 bolus; Site: left antecubital; 19:55 Drug: NS 0.9% 1000 ml Route: IV; Rate: 1 bolus; Site: right antecubital; 19:57 Drug: ProTONIX 40 mg Route: IVP; Site: right antecubital; 19:59 Drug: ProTONIX 8 mg/hr Route: IV; Rate: 25 ml/hr; Site: right antecubital; 20:00 Drug: Zofran (Ondansetron) 4 mg Route: IVP; Site: left antecubital; 20:12 Drug: Tylenol 1000 mg Route: PO; 21:20 Follow up: Response: No adverse reaction; Pain is unchanged, physician notified 21:14 Drug: fentaNYL (PF) 25 mcg Route: IVP; Site: right femoral; 05/23 00:00 Follow up: Response: No adverse reaction; Pain is decreased; RASS: Alert and Calm (0) 05/22 21:14 Drug: NS 0.9% 1000 ml Route: IV; Rate: 125 ml/hr; Site: right femoral; 05/23 01:40 Follow up: Response: No adverse reaction; IV Status: Infusion continued upon transfer Outcome: 05/22 23:40 ER care complete, transfer ordered by MD. matos 05/23 01:30 Transferred by ground EMS to [facility], Transfer form completed. X-rays sent wh w/ patient. Note: Report given to [facility] Condition: stable Instructed on the need for transfer. 01:33 Patient left the ED. mw2 Signatures: Dispatcher [employer] EDSonali Oakley, RN RN Ramón Ferreira PA PA cp McGuire, Victoria 2 Jihan Alvarado RN RN ea [place], Winsy Bart[place]Divya mw2 Charles Alvarado MD MD mh7 Corrections: (The following items were deleted from the chart) 05/22 23:52 22:51 initiated transfer with Jailyn from [facility] mw2 mw2 23:52 23:34 Jailyn from [facility] called back asking for a 15 minute mw2 extension mw2
[2020-05-23 04:55] VITALS: TEMP 97.5; O2SAT 100
[2020-05-23 05:03] VITALS: BP 94/49
--- NOTE | 2020-05-23 18:35 | RAD REPORT ---
EXAM DESCRIPTION: CT - Abdomen Pelvis W Contrast - 05/23/2020 6:27 am CLINICAL HISTORY: 29 years Female hematemesis; Abd pain TECHNIQUE: Contiguous axial images obtained through the abdomen and pelvis following intravenous con trast administration. Coronal and sagittal reformatted images provided. This CT exam was performed according to our departmental dose-optimization program, which includes on e or more of the following dose reduction techniques: automated exposure control, adjustment of the m A and/or kV according to patient size, and/or use of iterative reconstruction technique. COMPARISON: No prior exams provided for comparison. FINDINGS: Right femoral central venous catheter terminates in the IVC Minimal bibasilar atelectasis. The liver, biliary tree, gallbladder, pancreas, spleen, adrenal glands, kidneys, uterus, ovaries, uri nary bladder, and osseous structures are normal. There is no bowel inflammation, obstruction, free intraperitoneal air, or ascites. The appendix is no rmal. IMPRESSION: No acute abdominal or pelvic abnormalities. Electronically signed by: Julia Ngo MD 05/22/2020 10:00 PM EXPORT ADMINISTRATOR Due to temporary technical issues with the PACS/Fluency reporting system, reports are being signed by the in house radiologists without review as a courtesy to insure prompt reporting. The interpreting radiologist is fully responsible for the content of the report.
== END 2020-05-23 01:33 | disposition short-term general hospital (02) ==
LOC: ER 19:28
PROC: 06HM33Z Insertion of Infusion Device into Right Femoral Vein, Percutaneous Approach (ICD-10-PCS; principal; 2020-05-23)
DX: K92.2 Gastrointestinal hemorrhage, unspecified (principal); Z88.0 Allergy status to penicillin
CPT/HCPCS: 93005; 85025; 80048; 36415; 80320; 86900; 83735; 86850; 84703; 85610; 86901; 80076; 80307 ×8; 85730; 81003; 84484; 74177; 71045; 99285; 36556; Q9967; C9113; J3010; J7050; J7030 ×2; J2405

== ENCOUNTER → 2023-08-02 | Emergency (ER) | payer OTHER ==
[~2023-08-02] MED LIST: ACETAMINOPHEN 325 MG TABLET ONE; DIPHENHYDRAMINE 50 MG/ML VIAL ONE; IPRATROPIUM BROM 0.5MG/2.5ML ONE; KETOROLAC 30 MG/ML INJ ONE; LEVALBUTEROL 1.25 MG/3 ML NEB ONE; Levofloxacin500mg IV 500 MG/100 ML BAG IV ONE; METOCLOPRAMIDE 10 MG/2mL INJ ONE; NA CHLORIDE 0.9% 1,000 ML ONE; POTASSIUM 25 MEQ EFFERV TAB ONE
--- OUTSIDE RECORDS SUMMARY | 2023-08-02 15:37 | XMS REPORT | Continuity of Care Document ---
Author Name Unknown Address [address] 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 Role Phone Pcp, Patient Does Not Have A Primary Care Physic seferino CHIDI TAM Attending Clinician UnavailBETTY Aguirre Attending Clinician Unavailable [facility]_GC_VIRTUAL_PROV Attending Clinician Francisco javier GC_GCBZW_Genevieve_Isabel Attending Clinician UnavailAletha Willingham MD Attending Clinician ALETHA EVANS Attending Clinician Unavailable Osmar Alberto MD Attending Clinician Doctor Unassigned, [place] Attending Clinician BECKY Esparza Attending Clinician BECKY Soler Attending Clinician Lisbeth Morocho RN Attending Clinician Unavailable 2, [facility] Attending Clinician Unavailable PIPE RODRÍGUEZ Attending Clinician Francisco javier Ultrasound, Ang-Mfm Attending Clinician Pipe Yeager MD Attending Clinician MONICA RUIZ Attending Clinician Unavailkristal e 3, [facility] Usg Room Attending Clinician UnavailMonica Hall MD Attending Clinician [phone] SILVIA HUNT Attending Clinician UnavailOSMAR Moreno Attending Clinician Unavailable Osmar Valladares PA-C Attending Clinician [phone] Roman WEST, Malissa Attending Clinician [phone] Jose Juan Lindsey Attending Clinician [phone] JOSE JUAN ZHENG Attending Clinician Unavailable MALISSA MCGOVERN Attending Clinician Unavailable Jermaine RN, Belgica Martinez Attending Clinician Unavailab PEE Etienne Attending Clinician Unavail able SHAISTA HURT Attending Clinician Unavailable Provider, [facility] Attending Clinician Un available Shaista Jasmine Attending Clinician [phone] Genevieve WEST, Chidi Attending Clinician [phone] Only, [facility] Test Attending Clinician Unavailable Pob, [facility] Main Attending Clinician UnavailBECKY Coats Admitting Clinician CHIDI Martel Admitting Clinician Unavailkristal e PVH_GC_VIRTUAL_PROV Admitting Clinician Unavaila concepcion GC_GCBZW_Genevieve_S Admitting Clinician Unavaila ALETHA Brown Admitting Clinician Unavailable Cristina WEST, Aletha Schulte Admitting Clinician [phone] Genevieve WEST, Chidi Admitting Clinician [phone] Payers Payer Name Policy Type Policy Number Effective Date Expirati on Date Source HIM DESHAWNRANJEETPhilomena FROM [facility] [id number] 2022 00:00:00 [facility] DANIELLA BAINS [id number] 2022 00:00:00 [facility] [id number] 2017 00:00:00 HUONG MCCORMICK FROM [facility] (O) [id number] 2022 00:00:00 [facility] [id number] 2022 00:00:00 2022 00:00:00 [employer] [id number] 2022 00:00:00 2022 00:00:00 Problems Condition Name Condition Details Condition Category Status Onset Date Resolution Date Last Treatment Date Treating Clinician Comments Source Gestationa l hypertensi on, third trimester Gestationa l hypertensi on, third trimester Disease Active 2022-06 0-20 00:00: 00 [facility] Normal labor Normal labor Disease Active 2022-06 0-19 00:00: 00 [facility] Positive urine drug screen Positive urine drug screen Disease Active 2022-06 0 00:00: 00 [facility] Liveborn infant, of tubbs , born in hospital by vaginal delivery Liveborn , of tubbs , born in hospital by vaginal delivery Disease Active 2022-06 0 00:00: 00 [facility] Supervisio n of high-risk with insufficie nt care in second trimester Supervisio n of high-risk with insufficie nt care in second trimester Disease Active 12-09 00:00: 00 [facility] 18 weeks gestation of 18 weeks gestation of Disease Active 12-09 00:00: 00 [facility] 37 weeks gestation of 37 weeks gestation of Disease Active 12-09 00:00: 00 [facility] Abdominal pain, left lower quadrant Abdominal pain, left lower quadrant Disease Active 03-04 00:00: 00 [facility] 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-sac Disease Active 03-04 00:00: 00 [facility] Secondary dysmenorrh ea Secondary dysmenorrh ea Disease Active 03-04 00:00: 00 [facility] Irregular bleeding, encased IUD Irregular bleeding, encased IUD Disease Active 03-04 00:00: 00 [facility] Chronic pelvic pain in female Chronic pelvic pain in female Disease Active -22 00:00: 00 [facility] Allergies, Adverse Reactions, Alerts Allergy Name Allergy Type Status Severity Reaction(s) Onset Date Inactive Date Treating Clinician Comments Source NSAIDS (NON-TEJA ROIDAL ANTI-INF LAMMATOR Y DRUG) Drug Class Active Unknown-Cmnt 03-23 00:00: 00 [facility] PENICILL AMINE DRUG INGREDI Active Hives 03-23 00:00: 00 [facility] Nsaids (Non-Teja roidal Anti-Inf lammator y Drug) Drug Allergy Active Unknown - See comments 03-23 00:00: 00 [facility] Penicill amine Drug Allergy Active Hives 03-23 00:00: 00 [facility] Nsaids (Non-Teja roidal Anti-Inf lammator y Drug) Drug Intolera nce Active Unknown - See comments 03-23 00:00: 00 [facility] PENICILL INS Drug Class Active Hives 0 12-13 00:00: 00 [facility] Penicill ins Propensi ty to adverse reaction s to drug Active Hives 0 12-13 00:00: 00 [facility] Penicill ins Propensi ty to adverse reaction s to drug Active Hives 0 12-13 00:00: 00 [facility] Penicill ins Propensi ty to adverse reaction s to drug Active Hives 0 12-13 00:00: 00 [facility] Social History Social Habit Start Date Stop Date Quantity Comments Source ASSERTION 2022-08-12 00:00:00 [facility] History of tobacco use Current smoker [facility] Gender identity [facility] Sexual orientation [facility] Alcohol intake 2023-04-14 00:00:00 2023-04-14 00:00:00 Ex-drinker (finding) [facility] Tobacco use and exposure 2022-12-02 00:00:00 2022-12-02 00:00:00 Smokeless tobacco non-user [facility] Tobacco Comment 2022-12-02 00:00:00 2022-12-02 00:00:00 4 ppy [facility] Exposure to SARS-CoV-2 (event) 2021-06-13 00:00:00 2021-07-13 16:28:00 Not sure [facility] History of Social function 2020-03-04 00:00:00 2020-03-04 00:00:00 [facility] Sex Assigned At 1990 00:00:00 1990 00:00:00 [facility] Smoking Status Start Date Stop Date Source Never smoked tobacco [facility] Ex-smoker 2022-12-02 00:00:00 2022-12-02 [facility]00[facility] Medications Ordered Medication Name Filled Medication Name Start Date Stop Date Current Medication? Ordering Clinician Indication Dosage Frequency Signature (SIG) Comments Components Source medroxyPROG ESTERone (DEPO-PROVE RA) injection 150 mg 2022-06 16:15: 00 Yes 150mg 150 mg, Intramuscu lar, [id number], First dose on 04/16/23 at 1115, Until Discontinu ed, Routine [facility] PNV no.95/huyen us fum/folic ac ( ORAL) 2022-06 10:02: 07 04-16 00:00 :00 No Take by mouth. [facility] vitamin w/FA tablet 2022-06 00:00: 00 Yes [id number] 09 1{tbl} Take 1 tablet by mouth in the morning. [facility] docusate 100 mg capsule 2022-06 00:00: 00 Yes [id number] 09 200mg Take 2 capsules by mouth once daily as needed for Constipati on. [facility] ferrous sulfate 325 mg (65 mg iron) tablet 2022-06 00:00: 00 Yes [id number] 09 325mg Take 1 tablet by mouth in the morning and 1 tablet in the evening. [facility] vitamin w/FA tablet 2022-06 00:00: 00 Yes [id number] 09 1{tbl} Take 1 tablet by mouth in the morning. [facility] docusate 100 mg capsule 2022-06 00:00: 00 Yes [id number] 09 200mg Take 2 capsules by mouth once daily as needed for Constipati on. [facility] ferrous sulfate 325 mg (65 mg iron) tablet 2022-06 00:00: 00 Yes [id number] 09 325mg Take 1 tablet by mouth in the morning and 1 tablet in the evening. [facility] lactated ringers IV infusion 1,000 mL 2022-06 01:11: 40 Yes 1000mL at 125 mL/hr, 1,000 mL, IV Infusion, PRN, 1 dose, Starting on Tue04/14/23 at 2010, Until Discontinu ed, Routine [facility] HYDROcodone -acetaminop hen (NORCO 5) 5-325 mg tablet 1 tablet 2022-06 01:10: 57 Yes 1{tbl} 1 tablet, Oral, Q6HPRN, Starting on Tue04/14/23 at 2009, Until Discontinu ed, Routine, Pain (scale 7-10) [facility] acetaminoph en (TYLENOL) tablet 650 mg 2022-06 01:10: 57 Yes 650mg 650 mg, Oral, Q6HPRN, Starting on Tue04/14/23 at 2009, Until Discontinu ed, Routine, Pain (scale 1-3) [facility] diphenhydrA MINE (BENADRYL) tablet 25 mg 2022-06 01:10: 57 Yes 25mg 25 mg, Oral, Q6HPRN, Starting on Tue04/14/23 at 2009, Until Discontinu ed, Routine, Sleep, Itching [facility] ondansetron (ZOFRAN (PF)) injection 4 mg 2022-06 01:10: 57 Yes 4mg 4 mg, Slow IV Push, Q8HPRN, Starting on Tue04/14/23 at 2009, Until Discontinu ed, Routine, Nausea and Vomiting (N/V) [facility] simethicone (GAS RELIEF (SIMETHICON E)) chewable tablet 160 mg 2022-06 01:10: 57 Yes 160mg 160 mg, Oral, PC+HSPRN, Starting on Tue04/14/23 at 2009, Until Discontinu ed, Routine, Gas [facility] docusate (COLACE) capsule 200 mg 2022-06 01:10: 57 Yes 200mg 200 mg, Oral, QDAILYPRN, Starting on Blanca 04/14/23 at 2009, Until Discontinu ed, Routine, Constipati on [facility] magnesium hydroxide (MILK OF MAGNESIA) 400 mg/5 mL suspension 30 mL 2022-06 01:10: 57 Yes 30mL 30 mL, Oral, QDAILYPRN, Starting on Blanca 04/14/23 at 2009, Until Discontinu ed, Routine, Constipati on [facility] benzocaine- menthol (DERMOPLAST ) 20-0.5 % topical spray 2022-06 01:10: 57 Yes Topical, PRN, Starting on Blanca 04/14/23 at 2009, Until Discontinu ed, Routine, Perineum discomfort [facility] fentaNYL-ro pivacaine 2 mcg/mL-0.1 % (PF) in NS 200 mL epidural infusion RTU 2022-06 23:14: 00 04-15 03:22 :45 No Epidural, CONTINUOUS PRN, Starting on Blanca 04/14/23 at 1814, Until Blanca 04/14/23 at 2222, Routine, Intra-op [facility] fentaNYL-ro pivacaine 2 mcg/mL-0.1 % (PF) in NS 200 mL epidural infusion RTU 2022-06 23:14: 00 04-15 03:22 :45 No Epidural, CONTINUOUS PRN, Starting on Blanca 04/14/23 at 1814, Until Blanca 04/14/23 at 2222, Routine, Intra-op [facility] lidocaine-e pinephrine (XYLOCAINE W/EPINEPHRI NE) 1.5 %-1:200,000 injection 2022-06 23:11: 00 04-15 03:22 :45 No Intraderma l, ONCE INTRA PROCEDURE, Starting on Blanca 04/14/23 at 1811, Until Blanca 04/14/23 at 2222, Routine, Intra-op [facility] lidocaine-e pinephrine (XYLOCAINE W/EPINEPHRI NE) 1.5 %-1:200,000 injection 2022-06 23:11: 00 04-15 03:22 :45 No Intraderma l, ONCE INTRA PROCEDURE, Starting on Blanca 04/14/23 at 1811, Until Tue04/14/23 at 2222, Routine, Intra-op [facility] FENTanyl PF (SUBLIMAZE (PF)) injection 100 mcg 2022-06 22:16: 42 04-15 01:13 :41 No 100ug 100 mcg, Slow IV Push, Q1HPRN, Starting on Blanca 04/14/23 at 1716, Until Blanca 04/14/23 at 2012, Routine, Pain (scale 4-6), Pain (scale 7-10) [facility] lactated ringers IV infusion 500 mL 2022-06 21:50: 32 04-15 01:13 :40 No 500mL at 999 mL/hr, 500 mL, IV Infusion, PRN - SEE INSTRUCTIO NS, Starting on Tue04/14/23 at 1650, Until Blanca 04/14/23 at 2012, Routine [facility] D5W-LR IV infusion 1,000 mL 2022-06 21:50: 32 04-15 01:13 :40 No 1000mL at 1-125 mL/hr, IV Infusion, TITRATE, Starting on Blanca 04/14/23 at 1650, Until Blanca 04/14/23 at 2012, Routine [facility] PNV no.95/huyen us fum/folic ac ( ORAL) 2022-06 16:27: 15 Yes Take by mouth. [facility] PNV no.95/huyen us fum/folic ac ( ORAL) 2022-06 16:27: 15 Yes Take by mouth. [facility] PNV no.95/huyen us fum/folic ac ( ORAL) 03-12 03:53: 59 Yes Take by mouth. [facility] PNV no.95/huyen us fum/folic ac ( ORAL) 03-12 03:53: 59 Yes Take by mouth. [facility] PNV no.95/huyen us fum/folic ac ( ORAL) 0 -16 03:53: 59 Yes Take by mouth. [facility] PNV no.95/huyen us fum/folic ac ( ORAL) 0 16 03:53: 59 Yes Take by mouth. [facility] PNV no.95/huyen us fum/folic ac ( ORAL) 0 16 03:53: 59 Yes Take by mouth. [facility] PNV no.95/huyen us fum/folic ac ( ORAL) 0 16 03:53: 59 Yes Take by mouth. [facility] PNV no.95/huyen us fum/folic ac ( ORAL) 0 16 03:53: 59 Yes Take by mouth. [facility] metroNIDAZO LE 500 mg tablet 2022-0 -14 00:00: 00 Yes [id number] 9109 500mg Take 1 tablet by mouth every 12 (twelve) hours. [facility] metroNIDAZO LE 500 mg tablet 2022-0 9-14 00:00: 00 Yes [id number] 9109 500mg Take 1 tablet by mouth every 12 (twelve) hours. [facility] metroNIDAZO LE 500 mg tablet 2022-0 -14 00:00: 00 Yes [id number] 9109 500mg Take 1 tablet by mouth every 12 (twelve) hours. [facility] metroNIDAZO LE 500 mg tablet 2022-0 9-14 00:00: 00 Yes [id number] 9109 500mg Take 1 tablet by mouth every 12 (twelve) hours. [facility] metroNIDAZO LE 500 mg tablet 2022-0 9-14 00:00: 00 Yes [id number] 9109 500mg Take 1 tablet by mouth every 12 (twelve) hours. [facility] metroNIDAZO LE 500 mg tablet 2022-0 9-14 00:00: 00 03-23 00:00 :00 No [id number] 9109 500mg Take 1 tablet by mouth every 12 (twelve) hours. [facility] terconazole 0.4 % vaginal cream 03-09 00:00: 00 Yes [id number] 1{appli cator} Insert 1 Applicator into vagina at bedtime. Insert every night for 7 nights [facility] terconazole 0.4 % vaginal cream 03-09 00:00: 00 Yes [id number] 1{appli cator} Insert 1 Applicator into vagina at bedtime. Insert every night for 7 nights [facility] terconazole 0.4 % vaginal cream 03-09 00:00: 00 Yes [id number] 1{appli cator} Insert 1 Applicator into vagina at bedtime. Insert every night for 7 nights [facility] terconazole 0.4 % vaginal cream 03-09 00:00: 00 Yes [id number] 1{appli cator} Insert 1 Applicator into vagina at bedtime. Insert every night for 7 nights [facility] terconazole 0.4 % vaginal cream 03-09 00:00: 00 Yes [id number] 1{appli cator} Insert 1 Applicator into vagina at bedtime. Insert every night for 7 nights [facility] terconazole 0.4 % vaginal cream 03-09 00:00: 00 Yes [id number] 1{appli cator} Insert 1 Applicator into vagina at bedtime. Insert every night for 7 nights [facility] terconazole 0.4 % vaginal cream 03-09 00:00: 00 Yes [id number] 1{appli cator} Insert 1 Applicator into vagina at bedtime. Insert every night for 7 nights [facility] terconazole 0.4 % vaginal cream 03-09 00:00: 00 03-23 00:00 :00 No [id number] 1{appli cator} Insert 1 Applicator into vagina at bedtime. Insert every night for 7 nights [facility] butalbital- acetaminoph en-caff (ESGIC) 50-325-40 mg tablet 01-11 00:00: 00 Yes [id number] 1{tbl} Take 1 tablet by mouth every 4 (four) hours as needed (Headaches ). [facility] butalbital- acetaminoph en-caff (ESGIC) 50-325-40 mg tablet 2023-0 7-18 00:00: 00 Yes [id number] 1{tbl} Take 1 tablet by mouth every 4 (four) hours as needed (Headaches ). [facility] butalbital- acetaminoph en-caff (ESGIC) 50-325-40 mg tablet 3-0 7-18 00:00: 00 Yes [id number] 1{tbl} Take 1 tablet by mouth every 4 (four) hours as needed (Headaches ). [facility] butalbital- acetaminoph en-caff (ESGIC) 50-325-40 mg tablet 2023-0 7-18 00:00: 00 Yes [id number] 1{tbl} Take 1 tablet by mouth every 4 (four) hours as needed (Headaches ). [facility] butalbital- acetaminoph en-caff (ESGIC) 50-325-40 mg tablet 3-0 7-18 00:00: 00 Yes [id number] 1{tbl} Take 1 tablet by mouth every 4 (four) hours as needed (Headaches ). [facility] butalbital- acetaminoph en-caff (ESGIC) 50-325-40 mg tablet 3-0 7-18 00:00: 00 Yes [id number] 1{tbl} Take 1 tablet by mouth every 4 (four) hours as needed (Headaches ). [facility] butalbital- acetaminoph en-caff (ESGIC) 50-325-40 mg tablet 3-0 7-18 00:00: 00 Yes [id number] 1{tbl} Take 1 tablet by mouth every 4 (four) hours as needed (Headaches ). [facility] butalbital- acetaminoph en-caff (ESGIC) 50-325-40 mg tablet 2023-0 7-18 00:00: 00 Yes [id number] 1{tbl} Take 1 tablet by mouth every 4 (four) hours as needed (Headaches ). [facility]-c[facility] (ESGIC) 50-325-40 mg tablet 0 18 00:00: 00 Yes [id number] 1{tbl} Take 1 tablet by mouth every 4 (four) hours as needed (Headaches ). [facility] butalbital- acetaminoph en-caff (ESGIC) 50-325-40 mg tablet 01-11 00:00: 00 Yes [id number] 1{tbl} Take 1 tablet by mouth every 4 (four) hours as needed (Headaches ). [facility]al[facility]- acetaminoph en-caff (ESGIC) 50-325-40 mg tablet 01-11 00:00: 00 Yes [id number] 1{tbl} Take 1 tablet by mouth every 4 (four) hours as needed (Headaches ). [facility] butalbital- acetaminoph en-caff (ESGIC) 50-325-40 mg tablet 01-11 00:00: 00 Yes [id number] 1{tbl} Take 1 tablet by mouth every 4 (four) hours as needed (Headaches ). [facility] butalbital- acetaminoph en-caff (ESGIC) 50-325-40 mg tablet 01-11 00:00: 00 Yes [id number] 1{tbl} Take 1 tablet by mouth every 4 (four) hours as needed (Headaches ). [facility] butalbital- acetaminoph en-caff (ESGIC) 50-325-40 mg tablet 01-11 00:00: 00 Yes [id number] 1{tbl} Take 1 tablet by mouth every 4 (four) hours as needed (Headaches ). [facility] butalbital- acetaminoph en-caff (ESGIC) 50-325-40 mg tablet 2022-0 01-11 00:00: 00 Yes [id number] 1{tbl} Take 1 tablet by mouth every 4 (four) hours as needed (Headaches ). [facility] butalbital- acetaminoph en-caff (ESGIC) 50-325-40 mg tablet 3-0 -18 00:00: 00 Yes [id number] 1{tbl} Take 1 tablet by mouth every 4 (four) hours as needed (Headaches ). [facility] butalbital- acetaminoph en-caff (ESGIC) 50-325-40 mg tablet 3-0 7-18 00:00: 00 Yes [id number] 1{tbl} Take 1 tablet by mouth every 4 (four) hours as needed (Headaches ). [facility] butalbital- acetaminoph en-caff (ESGIC) 50-325-40 mg tablet 2022-0 18 00:00: 00 Yes [id number] 1{tbl} Take 1 tablet by mouth every 4 (four) hours as needed (Headaches ). [facility] butalbital- acetaminoph en-caff (ESGIC) 50-325-40 mg tablet 2022-0 -18 00:00: 00 Yes [id number] 1{tbl} Take 1 tablet by mouth every 4 (four) hours as needed (Headaches ). [facility] butalbital- acetaminoph en-caff (ESGIC) 50-325-40 mg tablet 2022-0 18 00:00: 00 Yes [id number] 1{tbl} Take 1 tablet by mouth every 4 (four) hours as needed (Headaches ). [facility] butalbital- acetaminoph en-caff (ESGIC) 50-325-40 mg tablet 2022-0 18 00:00: 00 Yes [id number] 1{tbl} Take 1 tablet by mouth every 4 (four) hours as needed (Headaches ). [facility] butalbital- acetaminoph en-caff (ESGIC) 50-325-40 mg tablet 2022-0 18 00:00: 00 04-16 00:00 :00 No [id number] 1{tbl} Take 1 tablet by mouth every 4 (four) hours as needed (Headaches ). [facility] butalbital- acetaminoph en-caff (ESGIC) 50-325-40 mg tablet [id number] 00:00: 00 Yes [id number] 1{tbl} Take 1 tablet by mouth every 4 (four) hours as needed (Headaches ). [facility] butalbital- acetaminoph en-caff (ESGIC) 50-325-40 mg tablet 01-04 00:00: 00 Yes [id number] 1{tbl} Take 1 tablet by mouth every 4 (four) hours as needed (Headaches ). [facility] butalbital- acetaminoph en-caff (ESGIC) 50-325-40 mg tablet 01-04 00:00: 00 Yes [id number] 1{tbl} Take 1 tablet by mouth every 4 (four) hours as needed (Headaches ). [facility] butalbital- acetaminoph en-caff (ESGIC) 50-325-40 mg tablet 01-04 00:00: 00 Yes [id number] 1{tbl} Take 1 tablet by mouth every 4 (four) hours as needed (Headaches ). [facility] ALPRAZolam (XANAX) 2 mg tablet 12-09 20:05: 42 12-09 00:00 :00 No 2mg Take 2 mg by mouth as needed for Sleep. [facility] ALPRAZolam (XANAX) 2 mg tablet 12-09 20:05: 42 12-09 00:00 :00 No 2mg Take 2 mg by mouth as needed for Sleep. [facility] dextroamphe tamine-amph etamine (ADDERALL) 30 mg tablet 12-09 20:05: 36 12-09 00:00 :00 No 30mg Take 30 mg by mouth daily. [facility] dextroamphe tamine-amph etamine (ADDERALL) 30 mg tablet 12-09 20:05: 36 12-09 00:00 :00 No 30mg Take 30 mg by mouth daily. [facility] traMADOL (ULTRAM) 50 mg tablet 12-09 20:05: 24 12-09 00:00 :00 No 100mg Take 100 mg by mouth every 6 (six) hours as needed. [facility] traMADOL (ULTRAM) 50 mg tablet 12-09 20:05: 24 12-09 00:00 :00 No 100mg Take 100 mg by mouth every 6 (six) hours as needed. [facility] naproxen 500 mg tablet 12-09 20:05: 12-09 00:00 :00 No 500mg Take 500 mg by mouth 2 (two) times 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 [facility] PNV no.95/huyen us fum/folic ac ( ORAL) 12-02 14:58: 09 Yes Take by mouth. [facility] PNV no.95/huyen us fum/folic ac ( ORAL) 12-02 14:58: 09 Yes Take by mouth. [facility] PNV no.95/huyen us fum/folic ac ( ORAL) 12-02 14:58: 09 Yes Take by mouth. [facility] PNV no.95/huyen us fum/folic ac ( ORAL) 12-02 14:58: 09 Yes Take by mouth. [facility] PNV no.95/huyen us fum/folic ac ( ORAL) 12-02 14:58: 09 Yes Take by mouth. [facility] PNV no.95/huyen us fum/folic ac ( ORAL) 608 14:58: 09 Yes Take by mouth. [facility] PNV no.95/huyen us fum/folic ac ( ORAL) 608 14:58: 09 Yes Take by mouth. [facility] PNV no.95/huyen us fum/folic ac ( ORAL) 608 14:58: 09 Yes Take by mouth. [facility] PNV no.95/huyen us fum/folic ac ( ORAL) 608 14:58: 09 Yes Take by mouth. [facility] PNV no.95/huyen us fum/folic ac ( ORAL) 608 14:58: 09 Yes Take by mouth. [facility] PNV no.95/huyen us fum/folic ac ( ORAL) 608 14:58: 09 Yes Take by mouth. [facility] PNV no.95/huyen us fum/folic ac ( ORAL) 608 14:58: 09 Yes Take by mouth. [facility] PNV no.95/huyen us fum/folic ac ( ORAL) 608 14:58: 09 Yes Take by mouth. [facility] PNV no.95/huyen us fum/folic ac ( ORAL) 608 14:58: 09 Yes Take by mouth. [facility] PNV no.95/huyen us fum/folic ac ( ORAL) 608 14:58: 09 [facility] 608 14:58: 09 Yes Take by mouth. [facility] PNV no.95/huyen us fum/folic ac ( ORAL) 0 608 14:58: 09 Yes Take by mouth. [facility] PNV no.95/huyen us fum/folic ac ( ORAL) 0 6-08 14:58: 09 Yes Take by mouth. [facility] [facility] fum/folic ac ( ORAL) 0 6-08 14:58: 09 Yes Take by mouth. [facility] PNV no.95/huyen us fum/folic ac ( ORAL) 08 14:58: 09 Yes Take by mouth. [facility] acetaminoph en-codeine (TYLENOL-CO DEINE #3) 300-30 mg tablet 07-13 00:00: 00 07-21 05:59 :00 No [id number] 1{tbl} Take 1 tablet by mouth every 4 (four) hours as needed for Pain (scale 4-6) for up to 7 days. Indication s: [facility]aminoph en-codeine (TYLENOL-CO DEINE #3) 300-30 mg tablet 07-13 00:00: 00 07-21 05:59 :00 No [id number] 1{tbl} Take 1 tablet by mouth every 4 (four) hours as needed for Pain (scale 4-6) for up to 7 days. Indication s: acute pain [facility] cetirizine 10 mg tablet 2020-06 00:00: 00 Yes [facility] cetirizine 10 mg tablet 2020-06 00:00: 00 Yes [facility] mg tablet 2020-06 00:00: 00 Yes [facility] cetirizine 10 mg tablet 2020-06 00:00: 00 Yes [facility] cetirizine 10 mg tablet 2020-06 00:00: 00 12-09 00:00 :00 No [facility] cetirizine 10 mg tablet 2020-06 00:00: 00 12-09 00:00 :00 No [facility] sulfamethox azole-trime thoprim (BACTRIM DS) 800-160 mg per tablet 2020-06 00:00: 00 05-25 05:59 :00 No [id number] 1{tbl} Take 1 tablet by mouth 2 (two) times daily for 10 days. [facility] traMADOL (ULTRAM) 50 mg tablet 02-15 19:20: 59 Yes 100mg Take 100 mg by mouth every 6 (six) hours as needed. [facility] dextroamphe tamine-amph etamine (ADDERALL) 30 mg tablet 02-15 19:20: 59 Yes 30mg Take 30 mg by mouth daily. [facility] ALPRAZolam (XANAX) 2 mg tablet 02-15 19:20: 59 Yes 2mg Take 2 mg by mouth as needed for Sleep. [facility] naproxen 500 mg tablet 02-15 19:20: 59 Yes 500mg Take 500 mg by mouth 2 (two) times 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 [facility] dextroamphe tamine-amph etamine (ADDERALL) 30 mg tablet 02-15 14:20: 59 Yes 30mg Take 30 mg by mouth daily. [facility] ALPRAZolam (XANAX) 2 mg tablet 02-15 14:20: 59 Yes 2mg Take 2 mg by mouth as needed for Sleep. [facility] naproxen 500 mg tablet 02-15 14:20: 59 Yes 500mg Take 500 mg by mouth 2 (two) times 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 [facility] dextroamphe tamine-amph etamine (ADDERALL) 30 mg tablet 02-15 14:20: 59 Yes 30mg Take 30 mg by mouth daily. [facility] ALPRAZolam (XANAX) 2 mg tablet 02-15 14:20: 59 Yes 2mg Take 2 mg by mouth as needed for Sleep. [facility] naproxen 500 mg tablet 02-15 14:20: 59 Yes 500mg Take 500 mg by mouth 2 (two) times 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 [facility] dextroamphe tamine-amph etamine (ADDERALL) 30 mg tablet 02-15 14:20: 59 Yes 30mg Take 30 mg by mouth daily. [facility] ALPRAZolam (XANAX) 2 mg tablet 02-15 14:20: 59 Yes 2mg Take 2 mg by mouth as needed for Sleep. [facility] naproxen 500 mg tablet 02-15 14:20: 59 Yes 500mg Take 500 mg by mouth 2 (two) times 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 [facility] dextroamphe tamine-amph etamine (ADDERALL) 30 mg tablet 02-15 14:20: 59 Yes 30mg Take 30 mg by mouth daily. [facility] ALPRAZolam (XANAX) 2 mg tablet 02-15 14:20: 59 Yes 2mg Take 2 mg by mouth as needed for Sleep. [facility] naproxen 500 mg tablet 02-15 14:20: 59 Yes 500mg Take 500 mg by mouth 2 (two) times 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 [facility] dextroamphe tamine-amph etamine (ADDERALL) 30 mg tablet 02-15 14:20: 59 Yes 30mg Take 30 mg by mouth daily. [facility] ALPRAZolam (XANAX) 2 mg tablet 02-15 14:20: 59 Yes 2mg Take 2 mg by mouth as needed for Sleep. [facility] naproxen 500 mg tablet 02-15 14:20: 59 Yes 500mg Take 500 mg by mouth 2 (two) times 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 [facility] promethazin e-dextromet horphan 6.25-15 mg/5 mL syrup 12-04 00:00: 00 Yes [id number] 5mL Take 5 mL by mouth 4 (four) times daily as needed for Cough or Cold symptoms. [facility] promethazin e-dextromet horphan 6.25-15 mg/5 mL syrup 12-04 00:00: 00 Yes [id number] 5mL Take 5 mL by mouth 4 (four) times daily as needed for Cough or Cold symptoms. [facility] promethazin e-dextromet horphan 6.25-15 mg/5 mL syrup 12-04 00:00: 00 Yes [id number] 5mL Take 5 mL by mouth 4 (four) times daily as needed for Cough or Cold symptoms. [facility] promethazin e-dextromet horphan 6.25-15 mg/5 mL syrup 12-04 00:00: 00 Yes [id number] 5mL Take 5 mL by mouth 4 (four) times daily as needed for Cough or Cold symptoms. [facility] promethazin e-dextromet horphan 6.25-15 mg/5 mL syrup 12-04 00:00: 00 Yes [id number] 5mL Take 5 mL by mouth 4 (four) times daily as needed for Cough or Cold symptoms. [facility] promethazin e-dextromet horphan 6.25-15 mg/5 mL syrup 610 00:00: 00 Yes [id number] 5mL Take 5 mL by mouth 4 (four) times daily as needed for Cough or Cold symptoms. [facility] promethazin e-dextromet horphan 6.25-15 mg/5 mL syrup 610 00:00: 00 Yes [id number] 5mL Take 5 mL by mouth 4 (four) times daily as needed for Cough or Cold symptoms. [facility] promethazin e-dextromet horphan 6.25-15 mg/5 mL syrup 10 00:00: 00 Yes [id number] 5mL Take 5 mL by mouth 4 (four) times daily as needed for Cough or Cold symptoms. [facility] promethazin e-dextromet horphan 6.25-15 mg/5 mL syrup 12-04 00:00: 00 12-09 00:00 :00 No [id number] 5mL Take 5 mL by mouth 4 (four) times daily as needed for Cough or Cold symptoms. [facility] promethazin e-dextromet horphan 6.25-15 mg/5 mL syrup 12-04 00:00: 00 12-09 00:00 :00 No [id number] 5mL Take 5 mL by mouth 4 (four) times daily as needed for Cough or Cold symptoms. [facility] traMADOL (ULTRAM) 50 mg tablet 03-05 10:39: 41 Yes 100mg Take 100 mg by mouth every 6 (six) hours as needed. [facility] dextroamphe tamine-amph etamine (ADDERALL) 30 mg tablet 03-05 10:39: 41 Yes 30mg Take 30 mg by mouth daily. [facility] ALPRAZolam (XANAX) 2 mg tablet 03-05 10:39: 41 Yes 2mg Take 2 mg by mouth as needed for Sleep. [facility] naproxen 500 mg tablet 03-05 10:39: 41 Yes 500mg Take 500 mg by mouth 2 (two) times 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 [facility] dextroamphe tamine-amph etamine (ADDERALL) 30 mg tablet 03-05 10:39: 41 Yes 30mg Take 30 mg by mouth daily. [facility] ALPRAZolam (XANAX) 2 mg tablet 03-05 10:39: 41 Yes 2mg Take 2 mg by mouth as needed for Sleep. [facility] naproxen 500 mg tablet 03-05 10:39: 41 Yes 500mg Take 500 mg by mouth 2 (two) times 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 [facility] dextroamphe tamine-amph etamine (ADDERALL) 30 mg tablet 03-05 10:39: 41 Yes 30mg Take 30 mg by mouth daily. [facility] ALPRAZolam (XANAX) 2 mg tablet 03-05 10:39: 41 Yes 2mg Take 2 mg by mouth as needed for Sleep. [facility] naproxen 500 mg tablet 03-05 10:39: 41 Yes 500mg Take 500 mg by mouth 2 (two) times 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
Us e approved by (Faculty): PACU USE -ANESTHESI A SERVICE-HY DROMORPHON E INJECTIONS [facility] ondansetron (ZOFRAN (PF)) injection 4 mg 03-04 15:23: 30 Yes 4mg 4 mg, Slow IV Push, PRN, 1 dose, Starting Tue03/04/20 at 1023, Until Discontinu ed, Routine, Nausea and Vomiting (N/V), PACU [facility] FENTanyl PF (SUBLIMAZE (PF)) injection 25 mcg 03-04 15:23: 30 03-04 15:40 :00 No 25ug 25 mcg, Slow IV Push, Q5MIN PRN, 4 doses, Starting Tue03/04/20 at 1023, Until Tue03/04/20 at 1040, Routine, Pain (scale 4-6), PACU [facility] HYDROcodone -acetaminop hen (NORCO 5) 5-325 mg tablet 1 tablet 03-04 15:18: 30 Yes 1{tbl} 1 tablet, Oral, PRN, 1 dose, Starting Tue03/04/20 at 1018, Until Discontinu ed, Routine, Pain (scale 4-6), DSU Recovery [facility] HYDROcodone -acetaminop hen (NORCO) 10-325 mg tablet 1 tablet 03-04 15:18: 30 03-04 16:03 :00 No 1{tbl} 1 tablet, Oral, PRN, 1 dose, Starting Tue03/04/20 at 1018, Until Tue03/04/20 at 1103, Routine, Pain (scale 7-10), DSU Recovery [facility] ibuprofen (IBU) tablet 800 mg 03-04 15:18: 30 03-04 16:40 :00 No 800mg 800 mg, Oral, PRN, 1 dose, Starting Tue03/04/20 at 1018, Until Discontinu ed, Routine, Pain (scale 1-3), DSU Recovery [facility] levonorgest reL (MIRENA) IUD 03-04 14:53: 00 Yes PRN, Starting Tue03/04/20 at 0953, Until Discontinu ed, Routine, Intra-op [facility] bupivacaine (preserv free) (SENSORCAIN E MPF) 0.25 % (2.5 mg/mL) injection 03-04 14:50: 00 Yes PRN, Starting Tue03/04/20 at 0950, Until Discontinu ed, Routine, Intra-op [facility] methylene blue 1 % (10 mg/mL) injection 03-04 14:44: 00 Yes PRN, Starting Tue03/04/20 at 0944, Until Discontinu ed, Routine, Intra-op [facility] scopolamine transdermal (TRANSDERM- SCOP) patch 1.5 mg 03-04 12:00: 00 03-07 12:06 :00 No 1.5mg 1.5 mg, Topical, Administer over 72 Hours, ONCE, 1 dose, [facility] 03/04/20 at 0700, Routine [facility] lactated ringers IV infusion 1,000 mL 03-04 12:00: 00 03-04 12:16 :00 No 1000mL at 20 mL/hr, 1,000 mL, IV Infusion, ONCE, 1 dose, [facility] 03/04/20 at 0700, Routine, DSU Pre-op [facility] traMADOL (ULTRAM) 50 mg tablet 02-27 15:47: 30 Yes 100mg Take 100 mg by mouth every 6 (six) hours as needed. [facility] dextroamphe tamine-amph etamine (ADDERALL) 30 mg tablet 02-27 15:47: 30 Yes 30mg Take 30 mg by mouth daily. [facility] ALPRAZolam (XANAX) 2 mg tablet 02-27 15:47: 30 Yes 2mg Take 2 mg by mouth as needed for Sleep. [facility] naproxen 500 mg tablet 02-27 15:47: 30 Yes 500mg Take 500 mg by mouth 2 (two) times 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 [facility] dextroamphe tamine-amph etamine (ADDERALL) 30 mg tablet 02-27 15:47: 30 Yes 30mg Take 30 mg by mouth daily. [facility] ALPRAZolam (XANAX) 2 mg tablet 02-27 15:47: 30 Yes 2mg Take 2 mg by mouth as needed for Sleep. [facility] naproxen 500 mg tablet 02-27 15:47: 30 Yes 500mg Take 500 mg by mouth 2 (two) times 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 [facility] dextroamphe tamine-amph etamine (ADDERALL) 30 mg tablet 02-27 15:47: 30 Yes 30mg Take 30 mg by mouth daily. [facility] ALPRAZolam (XANAX) 2 mg tablet 02-27 15:47: 30 Yes 2mg Take 2 mg by mouth as needed for Sleep. [facility] naproxen 500 mg tablet 02-27 15:47: 30 Yes 500mg Take 500 mg by mouth 2 (two) times 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 [facility] dextroamphe tamine-amph etamine (ADDERALL) 30 mg tablet 02-27 15:47: 30 Yes 30mg Take 30 mg by mouth daily. [facility] ALPRAZolam (XANAX) 2 mg tablet 02-27 15:47: 30 Yes 2mg Take 2 mg by mouth as needed for Sleep. [facility] naproxen 500 mg tablet 02-27 15:47: 30 Yes 500mg Take 500 mg by mouth 2 (two) times 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 [facility] Immunizations Ordered Immunization Name Filled Immunization Name Date Status Comments Source [facility] 2023-02-16 00:00:00 Completed [facility] 2023-02-16 00:00:00 Completed [facility] 2023-02-16 00:00:00 Completed [facility] TDAP 2023-02-16 00:00:00 Completed [facility] TDAP 2023-02-16 00:00:00 Completed [facility] TDAP 2023-02-16 00:00:00 Completed [facility] TDAP 2023-02-16 00:00:00 Completed [facility] TDAP 2023-02-16 00:00:00 Completed [facility] TDAP 2023-02-16 00:00:00 Completed [facility] TDAP 2023-02-16 00:00:00 Completed [facility] TDAP Unknown Completed [facility] TDAP Unknown Completed [facility] TDAP Unknown Completed [facility] TDAP Unknown Completed [facility] TDAP Unknown Completed [facility] TDAP Unknown Completed [facility] TDAP Unknown Completed [facility] TDAP Unknown Completed [facility] TDAP Unknown Completed [facility] Vital Signs Vital Name Observation Time Observation Value Comments S ource Systolic blood pressure 2023-04-16 12:55:00 127 mm[Hg] [facility] Diastolic blood pressure 2023-04-16 12:55:00 78 mm[Hg] [facility] Heart rate 2023-04-16 12:55:00 61 /min [facility] Body temperature 2023-04-16 12:55:00 36.89 Nilda [facility] Respiratory rate 2023-04-16 12:55:00 18 /min [facility] Oxygen saturation in Arterial blood by Pulse oximetry 2023-04-16 12:55:00 99 /min [facility] Body height 2023-04-14 21:38:00 160 cm [facility] Body weight 2023-04-14 21:38:00 65.772 kg [facility] BMI 2023-04-14 21:38:00 25.69 kg/m2 [facility] Systolic blood pressure 2023-04-06 14:27:00 132 mm[Hg] [facility] Diastolic blood pressure 2023-04-06 14:27:00 87 mm[Hg] [facility] Heart rate 2023-04-06 14:27:00 77 /min Un[facility] Body temperature 2023-04-06 14:27:00 36.94 Nilda [facility] Respiratory rate 2023-04-06 14:27:00 16 /min [facility] Body height 2023-04-06 14:27:00 160 cm [facility] Body weight 2023-04-06 14:27:00 65.817 kg [facility] BMI 2023-04-06 14:27:00 25.70 kg/m2 [facility] Oxygen saturation in Arterial blood by Pulse oximetry 2023-04-06 14:27:00 99 /min [facility] Systolic blood pressure 2023-03-23 19:04:00 120 mm[Hg] [facility] Diastolic blood pressure 2023-03-23 19:04:00 80 mm[Hg] [facility] Heart rate 2023-03-23 19:04:00 112 /min Unive [facility] Body temperature 2023-03-23 19:04:00 36.78 Nilda [facility] Respiratory rate 2023-03-23 19:04:00 16 /min [facility] Body height 2023-03-23 19:04:00 160 cm [facility] Body weight 2023-03-23 19:04:00 63.73 kg [facility] BMI 2023-03-23 19:04:00 24.89 kg/m2 [facility] Oxygen saturation in Arterial blood by Pulse oximetry 2023-03-23 19:04:00 98 /min [facility] Heart rate 2023-03-12 05:30:00 100 /min Un[facility] Oxygen saturation in Arterial blood by Pulse oximetry 2023-03-12 05:30:00 100 /min [facility] Systolic blood pressure 2023-03-12 05:00:00 118 mm[Hg] [facility] Diastolic blood pressure 2023-03-12 05:00:00 78 mm[Hg] [facility] Body temperature 2023-03-12 05:00:00 36.67 Nidla [facility] Respiratory rate 2023-03-12 05:00:00 17 /min [facility] Body weight 2023-03-12 03:00:00 63.957 kg [facility] BMI 2023-03-12 03:00:00 24.98 kg/m2 [facility] Systolic blood pressure 2023-03-09 13:54:00 105 mm[Hg] [facility] Diastolic blood pressure 2023-03-09 13:54:00 70 mm[Hg] [facility] Heart rate 2023-03-09 13:54:00 76 /min Un[facility] Body temperature 2023-03-09 13:54:00 36.5 Nilda [facility] Respiratory rate 2023-03-09 13:54:00 16 /min [facility] Body height 2023-03-09 13:54:00 160 cm [facility] Body weight 2023-03-09 13:54:00 64.411 kg [facility] BMI 2023-03-09 13:54:00 25.15 kg/m2 [facility] Systolic blood pressure 2023-02-16 15:59:00 101 mm[Hg] [facility] Diastolic blood pressure 2023-02-16 15:59:00 67 mm[Hg] [facility] Heart rate 2023-02-16 15:59:00 93 /min Unive [facility] Body temperature 2023-02-16 15:59:00 36.78 Nilda [facility] Respiratory rate 2023-02-16 15:59:00 16 /min [facility] Body height 2023-02-16 15:59:00 160 cm [facility] Body weight 2023-02-16 15:59:00 68.765 kg [facility] BMI 2023-02-16 15:59:00 26.85 kg/m2 [facility] Systolic blood pressure 2023-01-04 15:22:00 107 mm[Hg] [facility] Diastolic blood pressure 2023-01-04 15:22:00 64 mm[Hg] [facility] Heart rate 2023-01-04 15:22:00 101 /min Un[facility] Body temperature 2023-01-04 15:22:00 36.72 Nilda [facility] Respiratory rate 2023-01-04 15:22:00 18 /min [facility] Body height 2023-01-04 15:22:00 160 cm [facility] Body weight 2023-01-04 15:22:00 62.143 kg [facility] BMI 2023-01-04 15:22:00 24.27 kg/m2 [facility] Systolic blood pressure 2022-12-02 19:56:00 111 mm[Hg] [facility] Diastolic blood pressure 2022-12-02 19:56:00 74 mm[Hg] [facility] Heart rate 2022-12-02 19:56:00 80 /min Unive [facility] Body temperature 2022-12-02 19:56:00 37.06 Nilda [facility] Respiratory rate 2022-12-02 19:56:00 18 /min [facility] Body height 2022-12-02 19:56:00 160 cm [facility] Body weight 2022-12-02 19:56:00 56.246 kg [facility] BMI 2022-12-02 19:56:00 21.97 kg/m2 [facility] Systolic blood pressure 2021-07-13 22:22:00 113 mm[Hg] [facility] Diastolic blood pressure 2021-07-13 22:22:00 80 mm[Hg] [facility] Heart rate 2021-07-13 22:22:00 92 /min Unive [facility] Body temperature 2021-07-13 22:22:00 37.06 Nilda [facility] Respiratory rate 2021-07-13 22:22:00 16 /min [facility] Body height 2021-07-13 22:22:00 160 cm [facility] Body weight 2021-07-13 22:22:00 51.256 kg [facility] BMI 2021-07-13 22:22:00 20.02 kg/m2 [facility] Oxygen saturation in Arterial blood by Pulse oximetry 2021-07-13 22:22:00 98 /min [facility] Systolic blood pressure 2021-05-15 01:29:00 130 mm[Hg] [facility] Diastolic blood pressure 2021-05-15 01:29:00 74 mm[Hg] [facility] Heart rate 2021-05-15 01:29:00 65 [facility] Body temperature 2021-05-15 01:29:00 36.78 Nilda [facility] Respiratory rate 2021-05-15 01:29:00 17 /min [facility] Body weight 2021-05-15 01:29:00 51.256 kg [facility] BMI 2021-05-15 01:29:00 20.02 kg/m2 [facility] Oxygen saturation in Arterial blood by Pulse oximetry 2021-05-15 01:29:00 100 /min [facility] Systolic blood pressure 2020-12-04 21:38:00 96 mm[Hg] [facility] Diastolic blood pressure 2020-12-04 21:38:00 65 mm[Hg] [facility] Heart rate 2020-12-04 21:38:00 86 /min [facility] Body temperature 2020-12-04 21:38:00 36.67 Nilda [facility] Respiratory rate 2020-12-04 21:38:00 19 /min [facility] Body height 2020-12-04 21:38:00 160 cm [facility] Body weight 2020-12-04 21:38:00 54.432 kg [facility] BMI 2020-12-04 21:38:00 21.26 kg/m2 [facility] Oxygen saturation in Arterial blood by Pulse oximetry 2020-12-04 21:38:00 99 /min [facility] Respiratory rate 2020-03-04 17:44:00 20 /min [facility] Oxygen saturation in Arterial blood by Pulse oximetry 2020-03-04 17:44:00 99 /min [facility] Systolic blood pressure 2020-03-04 17:00:00 99 mm[Hg] [facility] Diastolic blood pressure 2020-03-04 17:00:00 62 mm[Hg] [facility] Heart rate 2020-03-04 15:18:00 59 /min Unive [facility] Body temperature 2020-03-04 15:18:00 36.22 Nilda [facility] Body height 2020-02-26 18:31:00 160 cm [facility] Body weight 2020-02-26 18:31:00 47.6 kg [facility] BMI 2020-02-26 18:31:00 18.59 kg/m2 [facility] Respiratory rate 2020-03-04 17:44:00 20 /min [facility] Oxygen saturation in Arterial blood by Pulse oximetry 2020-03-04 17:44:00 99 /min [facility] Systolic blood pressure 2020-03-04 17:00:00 99 mm[Hg] [facility] Diastolic blood pressure 2020-03-04 17:00:00 62 mm[Hg] [facility] Heart rate 2020-03-04 15:18:00 59 /min Unive [facility] Body temperature 2020-03-04 15:18:00 36.22 Nilda [facility] Body height 2020-02-26 18:31:00 160 cm [facility] [facility] 2020-02-26 18:31:00 47.6 kg [facility] BMI 2020-02-26 18:31:00 18.59 kg/m2 [facility] Procedures Procedure Date / Time Performed Performing Clinician Source CBC WITH DIFF 2023-04-15 09:38:00 AdAletha dunham [facility] URINE DRUG (IMMUNOASSAY) - COMPREHENSIVE DRUG SCREEN 2023-04-14 23:54:00 Aletha Evans [facility] CENTRAL NEURAXIAL BLOCK 2023-04-14 23:00:00 Cindy Alberto [facility] SGOT (ASPARTATE AMINO TRANSFER) 2023-04-14 22:00:00 Adum, Aletha Schulte [facility] CREATININE 2023-04-14 22:00:00 Adum, Aletha Schulte [facility] ALANINE AMINO TRANSFERASE(SGPT 2023-04-14 22:00:00 Adum, Aletha Schulte [facility] LACTATE DEHYDROGENASE 2023-04-14 22:00:00 Adum, Aletha Schulte [facility] URIC ACID 2023-04-14 22:00:00 Adum, Aletha Schulte [facility] CBC WITH DIFF 2023-04-14 22:00:00 Adum, Aletha Schulte [facility] HEPATITIS B SURFACE ANTIGEN 2023-04-14 22:00:00 Adum, Aletha Schulte [facility] HB ABO GROUPING 2023-04-14 22:00:00 Adum, Aletha Ruiz [facility] ADC OR CHRIS ONLY - RPR 2023-04-14 22:00:00 Adum, Rajwinder Schulte [facility] HIV 1/2 AG-AB WITH REFLEX 2023-04-14 22:00:00 Adum, Rajwinder Schulte [facility] DSU PRE-OP 2023-04-06 05:01:00 Doctor Unass igned, Ramseur [facility] POCT URINALYSIS W/O SPECIFIC GRAVITY 2023-04-06 00:00:00 Adum, Aletha Schulte [facility] POCT URINALYSIS W/O SPECIFIC GRAVITY 2023-03-23 00:00:00 Adum, Aletha Schulte [facility] CONSENT/REFUSAL FOR DIAGNOSIS AND TREATMENT 2023-03-12 02:32:20 Doctor Unassigned, Ramseur [facility] POCT URINALYSIS W/O SPECIFIC GRAVITY 2023-03-09 00:00:00 Adum, Aletha Schulte [facility] URINE DRUG (IMMUNOASSAY) - COMPREHENSIVE DRUG SCREEN 2023-02-16 16:09:00 Adum, Aletha Schulte [facility] GALV ONLY - URINE DRUG (LCMSMS) - HANDY PANEL 2023-02-16 16:09:00 Adum, Aletha Schulte [facility] URINE DRUG (LCMSMS) - BENZODIAZEPINES PANEL 2023-02-16 16:09:00 Adum, Aletha Schulte [facility] TDAP VACCINE, >11 YRS, IM 2023-02-16 16:06:33 Adum, Vi cayetano Schulte [facility] POCT URINALYSIS W/O SPECIFIC GRAVITY 2023-02-16 00:00:00 Adum, Aletha Schulte [facility] SECOND AND THIRD TRIMESTER ULTRASOUND 2023-02-09 15:25:00 Adum, Aletha Schulte [facility] SECOND AND THIRD TRIMESTER ULTRASOUND 2023-01-12 20:13:00 Adum, Aletha Schulte [facility] SECOND AND THIRD TRIMESTER ULTRASOUND 2023-01-12 20:05:00 Adum, Aletha Schulte [facility] ASSIGNMENT OF BENEFITS 2023-01-04 15:16:29 Docto r Unassigned, Ramseur [facility] POCT URINALYSIS W/O SPECIFIC GRAVITY 2023-01-04 00:00:00 Adum, Aletha Schulte [facility] URINE DRUG (IMMUNOASSAY) - COMPREHENSIVE DRUG SCREEN 2022-12-02 21:35:00 Adum, Aletha Schulte [facility] URINE CULTURE 2022-12-02 21:35:00 Adum, Aletha Schulte [facility] GC & CHLAMYDIA AMPLIFIED ASSAY 2022-12-02 21:35:00 Adum, Aletha Schulte [facility] GALV ONLY - URINE DRUG (LCMSMS) - HANDY PANEL 2022-12-02 21:35:00 Adum, Aletha Schulte [facility] URINE DRUG (LCMSMS) - OPIATES PANEL 2022-12-02 21:35:00 Adum, Aletha Schulte [facility] URINE DRUG (LCMSMS) - SYNTHETIC OPIATES PANEL 2022-12-02 21:35:00 Adum, Aletha Schulte [facility] URINE DRUG (LCMSMS) - BARBITURATES PANEL 2022-12-02 21:35:00 Adum, Aletha Schulte [facility] TRICHOMONAS AMPLIFIED ASSAY 2022-12-02 21:35:00 Adum, Aletha Eris [facility] AUTHORIZATION TO RELEASE PHI TO [facility] 2022-12-02 05:01:00 Doctor Unassigned, Ramseur [facility] POCT URINALYSIS W/O SPECIFIC GRAVITY 2022-12-02 00:00:00 Adum, Aletha Eris [facility] EXTERNAL PROVIDER RECORDS 2021-10-17 05:01:00 Do ctor Unassigned, Ramseur [facility] XR SHOULDER 2+ VW RIGHT 2021-07-13 22:45:00 Cindy Valladares [facility] POCT GRP A STREP (MOLECULAR) 2020-12-04 00:00:00 Grisel Cyr [facility] POCT TEST 2020-12-04 00:00:00 Sonal Escobar er [facility] HB ABO GROUPING 2020-03-04 12:18:00 Chidi Tam [facility] POCT TEST 2020-03-04 12:00:00 Zach Onofre [facility] CBC WITH DIFF 2020-02-29 14:32:00 [facility] AND TREATMENT 2020-02-29 14:10:44 Doctor Unassigned, Ramseur [facility] ASSIGNMENT OF BENEFITS 2020-02-29 14:10:07 Docto r Unassigned, Ramseur [facility] CONSENT/REFUSAL FOR DIAGNOSIS AND TREATMENT 2020-02-29 13:55:18 Doctor Unassigned, Ramseur [facility] ASSIGNMENT OF BENEFITS 2020-02-29 13:54:57 Docto r Unassigned, Ramseur [facility] PATIENT FINANCIAL POLICY 2020-02-29 13:54:39 Doctor Unassigned, Ramseur [facility] NO SHOW OR MISSED APPOINTMENT POLICY ACKNOWLEDGEMENT 2020-02-29 13:54:19 Doctor Unassigned, Ramseur [facility] NOTICE OF PRIVACY PRACTICES 2020-02-29 13:53:52 Doctor Unassigned, Ramseur [facility] CONSENT/REFUSAL FOR DIAGNOSIS AND TREATMENT 2020-02-29 13:53:36 Doctor Unassigned, Ramseur [facility] ASSIGNMENT OF BENEFITS 2020-02-29 13:53:18 Docto r Unassigned, Ramseur [facility] DSU PRE-OP 2020-02-28 05:01:00 Doctor Unass igned, Ramseur [facility] INSURANCE CORRESPONDENCE 2020-02-13 05:01:00 Doc tor Unassigned, Ramseur [facility] Encounters Start Date/Time End Date/Time Encounter Type Admission Type Attending [facility] Care Facility Care Department Encounter ID Source 2023-03-12 03:54:10 Outpatient P [facility] STEFFEN [id number] [facility] 2021-04-24 15:55:22 Outpatient R CHIDI TAM [facility] ZACARIAS [id number] [facility] 2020-10-15 12:07:16 Outpatient BETTY CHANG [facility] [id number] [facility] 2023-07-17 00:00:00 2023-07-17 00:00:00 Outpatient PVH_GC_VIRT UAL_PROV PRIV PRIV [id number] [facility] 2023-07-08 00:00:00 2023-07-08 00:00:00 Outpatient GC_GCBZW_Ka diyala_S PRIV PRIV [id number] [facility] 2023-05-27 00:00:00 2023-05-27 00:00:00 Patient Secure Msg Aletha Evans [facility] 1.2.840.114 350.1.13.10 4.2.7.2.686 [id number] [facility] 2023-04-25 00:00:00 2023-04-25 00:00:00 Outpatient GC_GCBZW_Ka diyala_S PRIV PRIV [id number] [facility] 2023-04-14 16:27:00 2023-04-16 11:30:00 Inpatient P CRISTINAALETHA [facility] [id number] [facility] 2023-04-14 16:27:00 2023-04-16 11:30:00 Hospital Encounter Aletha Evans [facility] 1.2.840.114 350.1.13.10 4.2.7.2.686 [id number] [facility] 2023-04-15 15:30:00 2023-04-15 15:30:00 Outpatient R ADPOLO [facility] [id number] [facility] 2023-04-14 18:02:00 2023-04-14 22:13:00 Anesthesia Event Dolly Osmar Schofield [facility] 1.2840.114 350.1.13.10 4.2.7.2.686 [id number] [facility] 2023-04-06 09:00:00 2023-04-06 10:11:50 Outpatient R ADPOLO [facility] [id number] [facility] 2023-04-06 09:00:00 2023-04-06 10:11:50 Routine Visit Ad [facility] 1.2840.114 350.1.13.10 4.2.7.2.686 [id number] [facility] 2023-04-06 00:00:00 2023-04-06 00:00:00 Orders Only Doctor Unassigned, Ramseur [facility] 1.2.840.114 350.1.13.10 4.2.7.2.686 [id number] [facility] 2023-03-27 00:00:00 2023-03-27 00:00:00 Patient Secure Msg Doctor Unassigned, Ramseur [facility] 1.2.840.114 350.1.13.10 4.2.7.2.686 [id number] [facility] 2023-03-23 16:00:00 2023-03-23 16:00:00 [facility] 1.2.840.114 350.1.13.10 4.2.7.2.686 [id number] [facility] 2023-03-23 16:00:00 2023-03-23 14:45:31 Outpatient R ALETHA EVANS [facility] [id number] [facility] 2023-03-22 00:00:00 2023-03-22 00:00:00 Telephone Aletha Evans [facility] 1.0.114 350.1.13.10 4.2.7.2.686 [id number] [facility] 2023-03-11 21:43:00 2023-03-12 00:30:00 Outpatient P ELMORE-YUMIKO S, BECKY ELMORE-YUMIKO S, BECKY [facility] [id number] [facility] 2023-03-11 21:43:00 2023-03-12 00:30:00 Hospital Encounter Elmore-Yumiko s, Becky [facility] 1.0.114 350.1.13.10 4.2.7.2.686 [id number] [facility] 2023-03-11 00:00:00 2023-03-11 00:00:00 Nurse Triage Lisbeth Raymond [facility] 1.840.114 350.1.13.10 4.2.7.2.686 [id number] [facility] 2023-03-11 00:00:00 2023-03-11 00:00:00 Orders Only Doctor Unassigned, Ramseur [facility] 1.0.114 350.1.13.10 4.2.7.2.686 [id number] [facility] 2023-03-10 00:00:00 2023-03-10 00:00:00 Case Management Aletha Evans [facility] 1.840.114 350.1.13.10 4.2.7.2.686 [id number] [facility] 2023-03-09 09:00:00 2023-03-09 09:30:24 Outpatient R CRISTINA [facility] [id number] [facility] 2023-03-09 09:00:00 2023-03-09 09:30:24 Routine Visit Cristina [facility] 1.840.114 350.1.13.10 4.2.7.2.686 [id number] [facility] 2023-03-02 13:15:00 2023-03-02 13:15:00 Outpatient R CRISTINA [facility] [id number] [facility] 2023-02-25 00:00:00 2023-02-25 00:00:00 Telephone Adpolo [facility] 1.840.114 350.1.13.10 4.2.7.2.686 [id number] [facility] 2023-02-21 09:00:00 2023-02-21 11:00:08 Outpatient R CRISTINA [facility] [id number] [facility] 2023-02-21 09:00:00 2023-02-21 09:15:00 Rn Cardiac Cath Visit 2, Adc Lab Adpolo [facility] 1.840.114 350.1.13.10 4.2.7.2.686 [id number] [facility] 2023-02-16 11:15:00 2023-02-16 11:21:20 Outpatient R CRISTINA [facility] [id number] [facility] 2023-02-16 11:15:00 2023-02-16 11:21:20 Routine Visit Cristina [facility] 1.0.114 350.1.13.10 4.2.7.2.686 [id number] [facility] 2023-02-09 10:00:00 2023-02-09 10:31:51 Outpatient P PIPE RODRÍGUEZ [facility] [id number] [facility] 2023-02-09 10:00:00 2023-02-09 10:31:51 Rn Cardiac Cath Visit Ultrasound, [facility] Pipe Rodríguez [facility] 1.0.114 350.1.13.10 4.2.7.2.686 [id number] [facility] 2023-02-04 15:45:00 2023-02-04 15:45:00 Outpatient R ALETHA EVANS [facility] [id number] [facility] 2023-02-03 00:00:00 2023-02-03 00:00:00 [facility] 1.0.114 350.1.13.10 4.2.7.2.686 [id number] [facility] 2023-01-20 00:00:00 2023-01-20 00:00:00 Patient Secure Msg Doctor Unassigned, Ramseur [facility] 1.0.114 350.1.13.10 4.2.7.2.686 [id number] [facility] 2023-01-12 13:00:00 2023-01-12 14:52:01 Outpatient P MONICA RUIZ [facility] [id number] [facility] 2023-01-12 13:00:00 2023-01-12 14:52:01 Rn Cardiac Cath Visit 3, [facility] Usg Room Monica Ruiz [facility] 1.0.114 350.1.13.10 4.2.7.2.686 [id number] [facility] 2023-01-11 00:00:00 2023-01-11 00:00:00 Patient Secure Msg Doctor Unassigned, Ramseur [facility] 1.2.840.114 350.1.13.10 4.2.7.2.686 [id number] [facility] 2023-01-05 00:00:00 2023-01-05 00:00:00 Refill Adum, Aletha Schulte [facility] 1.2.840.114 350.1.13.10 4.2.7.2.686 [id number] [facility] 2023-01-04 11:15:00 2023-01-04 11:39:58 Outpatient R ADPOLO, ALETHA [facility] [id number] [facility] 2023-01-04 11:15:00 2023-01-04 11:30:00 Rn Cardiac Cath Visit 2, Adc Lab Adum, Aletha Schulte [facility] 1.2.840.114 350.1.13.10 4.2.7.2.686 [id number] [facility] 2023-01-04 10:30:00 2023-01-04 11:13:38 Routine Visit Adpolo, Aletha Schulte [facility] 1.2.840.114 350.1.13.10 4.2.7.2.686 [id number] [facility] 2023-01-04 00:00:00 2023-01-04 00:00:00 Orders Only Doctor Unassigned, Ramseur [facility] 1.284.114 350.1.13.10 4.2.7.2.686 [id number] [facility] 2022-12-30 14:30:00 2022-12-30 14:30:00 Outpatient R ADUM, ALETHA [facility] [id number] [facility] 2022-12-22 00:00:00 2022-12-22 00:00:00 Telephone AdAletha dunham [facility] 1.2.840.114 350.1.13.10 4.2.7.2.686 [id number] [facility] 2022-12-07 11:30:00 2022-12-07 11:30:00 Outpatient R [facility] [id number] [facility] 2022-12-02 14:30:00 2022-12-02 16:25:32 Outpatient R CRISTINA [facility] [id number] [facility] 2022-12-02 14:30:00 2022-12-02 16:25:32 Initial Visit KennyAletha dunham [facility] 1.2.840.114 350.1.13.10 4.2.7.2.686 [id number] [facility] 2022-12-02 00:00:00 2022-12-02 00:00:00 Orders Only Doctor Unassigned, Ramseur [facility] 1.2.840.114 350.1.13.10 4.2.7.2.686 [id number] [facility] 2022-11-17 14:30:00 2022-11-17 14:30:00 Outpatient R ALETHA EVANS [facility] [id number] [facility] 2022-11-09 14:00:00 2022-11-09 14:00:00 Outpatient R CRISTINA [facility] [id number] [facility] 2022-03-23 18:20:00 2022-03-23 18:20:00 Outpatient R SILVIA HUNT [facility] [id number] [facility] 2021-10-17 00:00:00 2021-10-17 00:00:00 Orders Only Doctor Unassigned, Ramseur [facility] 1.84.114 350.1.13.10 4.2.7.2.686 [id number] [facility] 2021-07-13 16:34:35 2021-07-13 23:59:00 Outpatient R [facility] [id number] [facility] 2021-07-13 16:34:35 2021-07-13 23:59:00 Hospital Encounter [facility] 1.840.114 350.1.13.10 4.2.7.2.686 [id number] [facility] 2021-07-13 16:20:00 2021-07-13 16:56:35 Urgent Care ValladaresOsmar scott [facility] 1.84.114 350.1.13.10 4.2.7.2.686 [id number] [facility] 2021-05-14 19:18:50 2021-05-14 19:38:50 [facility] 1.84.114 350.1.13.10 4.2.7.2.686 [id number] [facility] 2021-05-14 19:20:00 2021-05-14 19:20:00 [facility] [id number] [facility] 2021-05-09 19:00:00 2021-05-09 19:00:00 [facility] [id number] 2021-02-16 00:00:00 2021-02-16 00:00:00 Letter (Out) Belgica Dean [facility] 1.2840.114 350.1.13.10 4.2.7.2.686 [id number] [facility] 2021-02-15 14:20:00 2021-02-15 14:20:00 Outpatient PEE SUNSHINE [facility] [id number] [facility] 2020-12-04 19:40:00 2020-12-04 19:40:00 Outpatient SHAISTA MORFIN [facility] [id number] [facility] 2020-12-04 16:22:30 2020-12-04 17:39:45 Urgent Care Provider, [facility] Shaista Hurt [facility] 1.114 350.1.13.10 4.2.7.2.686 [id number] [facility] 2020-08-25 10:23:00 2020-08-25 14:00:00 Outpatient BETTY CHANG [facility] [id number] [facility] 2020-07-07 13:40:00 2020-07-07 23:59:00 Outpatient BETTY CHANG [facility] [id number] [facility] 2020-03-04 06:47:00 2020-03-04 12:44:00 Hospital Encounter [facility] 1.114 350.1.13.10 4.2.7.2.686 [id number] [facility] 2020-03-04 06:47:00 2020-03-04 12:44:00 Hospital Encounter [facility] 1.114 350.1.13.10 4.2.7.2.686 [id number] 2020-03-02 00:00:00 2020-03-02 00:00:00 Letter (Out) Belgica Dean [facility] 1.114 350.1.13.10 4.2.7.2.686 [id number] [facility] 2020-03-02 00:00:00 2020-03-02 00:00:00 Letter (Out) JermaineBelgica rosales Michelle [facility] 1.2.840.114 350.1.13.10 4.2.7.2.686 [id number] 2020-02-29 09:03:04 2020-02-29 09:18:04 Laboratory Only Only, Adc Test Chidi Tam [facility] 1.2.840.114 350.1.13.10 4.2.7.2.686 [id number] [facility] 2020-02-29 09:01:58 2020-02-29 09:16:58 Rn Cardiac Cath Visit [facility] Chidi Tam [facility] 1.2840.114 350.1.13.10 4.2.7.2.686 [id number] [facility] 2020-02-29 09:01:58 2020-02-29 09:16:58 Rn Cardiac Cath Visit [facility] 1.2.840.114 350.1.13.10 4.2.7.2.686 [id number] 2020-02-29 08:45:00 2020-02-29 08:45:00 Outpatient R CHIDI TAM [facility] [id number] [facility] 2020-02-13 00:00:00 2020-02-13 00:00:00 Orders Only Doctor Unassigned, Ramseur [facility] 1.2.840.114 350.1.13.10 4.2.7.2.686 [id number] [facility] Results Test Description Test Time Test Comments Results Result Co mments Source [facility]2023-04-15 09:21:25* Test Item Value Reference Range Interpretation Comme nts AST(SGOT) (test code = 2361234477) 24 U/L 13-40 Lab Interpretation (test cod e = 26195-9) [id number] 09:21:25* Test Item Value Reference Range Interpretation Comme nts URIC ACID (test code = 2643909098) 4.7 mg/dL 2.9-6.0 Lab Interpretation (test cod e = 11340-0) [facility] 09:21:25* Test Item Value Reference Range Interpretation Comme nts CREATININE (test code = 0846623449) 0.68 mg/dL 0.50-1.04 eGFR (test code = 5342682161) 100.3 mL/min/1.73m2 TIM (test code = TIM) Association of Glomerular Filtration Rate (GFR) and Staging of Kidney Disease* + + +- +| GFR (mL/min/1.73 m2) ?| With Kidney Damage ?| ?Without Kidney Damage+ ------+ ----+ ------+| ?>90 ?| ?Stage one ?| ? Normal ?+ -+ + -+| ?60-89 ?| ?Stage two ?| ? Decreased GFR ? + + +- +| ?30-59 ?| ?Stage three ?| ? Stage three ? + + +- +| ?15-29 ?| ?Stage four ? | ? Stage four ?+ -+ + -+| ?<15 (or dialysis) ? ?| ?Stage five ? | ? Stage five ?+ -+ + -+ *Each stage assumes the associated GFR level has been in effect for at least three months. ?Stages 1 to 5, with or without kidney disease, indicate chronic kidney disease. Notes: Determination of stages one and two (with eGFR >59mL/min/1.73 m2) requires estimation of kidney damage for at least three months as defined by structural or functional abnormalities of the kidney, manifested by either:Pathological abnormalities or Markers of kidney damage (including abnormalities in the composition of the blood or urine or abnormalities in imaging tests). [facility] [id number] 08:57:05 * Test Item Value Reference Range Interpretation Comme nts HBsAg Semi-Quantitative (vivien t code = 5195-3) 0.07 Negative [facility] CHRIS ONLY - [id number] 07:13:12* Test Item Value Reference Range Interpretation Comme nts RPR (Qualitative) (test code = 83420-9) Nonreactive Nonreactive Lab Interpretation (test cod e = 89533-4) Normal [facility] Hospital[facility] [id number] 02:08:24* Test Item Value Reference Range Interpretation Comme nts LDH (test code = 5630323553) 251 U/L 120-246 H Lab Interpretation (test cod e = 17607-2) Abnormal [facility] AG-AB WITH [id number] 23:20:38* Test Item Value Reference Range Interpretation Comme nts HIV Semi-quantitative (test code = 64837-8) 0.15 Negative TIM (test code = TIM) Non-reactive for HIV-1 antigen and HIV-1/HIV-2 antibodies. ?No laboratory evidence of HIV infection. ?Repeat in 2-4 weeks if acute HIV infection is suspected. [facility] with Kvdsncekvayj1216-29-41 22:36:51* Test Item Value Reference Range Interpretation Comme nts WBC (test code = 6690-2) 7.73 See_Comment [Automated [employer] ge] The system which generated this result transmitted reference range: 4.30 - 11.10 10*3/?L. The reference range was not used to interpret this result as normal/abnormal. RBC (test code = 789-8) 4.13 See_Comment [Automated [employer]] The system which generated this result transmitted reference range: 3.93 - 5.25 10*6/?L. The reference range was not used to interpret this result as normal/abnormal. HGB (test code = 718-7) 10.4 g/dL 11.6-15.0 L HCT (test code = 4544-3) 32.5 % 35.7-45.2 L MCV (test code = 787-2) 78.7 fL 80.6-95.5 L MCH (test code = 785-6) 25.2 pg 25.9-32.8 L MCHC (test code = 786-4) 32.0 g/dL 31.6-35.1 RDW-SD (test code = 59062-5) 40.0 fL 39.0-49.9 RDW-CV (test code = 788-0) 14.2 % 12.0-15.5 PLT (test code = 777-3) 295 See_Comment [Automated [employer]] The system which generated this result transmitted reference range: 166 - 358 10*3/?L. The reference range was not used to interpret this result as normal/abnormal. MPV (test code = 74266-9) 12.7 fL 9.5-12.9 NRBC/100 WBC (test code = 9728343154) 0.0 See_Comment [Automated [employer]age] The system which generated this result transmitted reference range: 0.0 - 10.0 /100 WBCs. The reference range was not used to interpret this result as normal/abnormal. NRBC x10^3 (test code = 2203906753) See_Comment [Automated [employer]] The system which generated this result transmitted reference range: 10*3/?L. The reference range was not used to interpret this result as normal/abnormal. GRAN MAT (NEUT) % (test code = 770-8) 76.0 % IMM GRAN % (test code = 1407443544) 0.40 % LYMPH % (test code = 736-9) 15.7 % MONO % (test code = 5905-5) 7.2 % EOS % (test code = 713-8) 0.1 % BASO % (test code = 706-2) 0.6 % GRAN MAT x10^3(ANC) (test code = 2842168463) 5.87 10*3/uL 1.88-7.09 IMM GRAN x10^3 (test code = 9448504868) 0.03 10*3/uL 0.00-0.06 LYMPH x10^3 (test code = 731-0) 1.21 10*3/uL 1.32-3.29 L MONO x10^3 (test code = 742-7) 0.56 10*3/uL 0.33-0.92 EOS x10^3 (test code = 711-2) 0.03-0.39 L BASO x10^3 (test code = 704-7) 0.05 10*3/uL 0.01-0.07 Lab Interpretation (test code = 43078-0) [facility] [id number] 22:23:00 * Test Item Value Reference Range Interpretation Comme nts ABO & RH (test code = 20) A Positive IAT (test code = 1185) Negative [facility]/O SPECIFIC [id number] 16:08:00* Test Item Value Reference Range Interpretation Comme nts POCT PH U (test code = 3254) n/a 5-8 POCT U LEUK EST (test code = 3263) n/a Negative - Negative POCT U NIT (test code = 3262) n/a Negative - Negati ve POCT U PROT (test code = 3259) trace Negative - Negat delvis POCT U GLU (test code = 3256) negative Negative - Negati ve POCT U KETONE (test code = 3258) n/a Negative - Neg ative POCT U BLD (test code = 3257) n/a Negative - Negati ve [facility] URINALYSIS W/O SPECIFIC [id number] 20:42:00* Test Item Value Reference Range Interpretation Comme nts POCT PH U (test code = 3254) n/a 5-8 POCT U LEUK EST (test code = 3263) n/a Negative - Negative POCT U NIT (test code = 3262) n/a Negative - Negati ve POCT U PROT (test code = 3259) trace Negative - Negat delvis POCT U GLU (test code = 3256) negative Negative - Negati ve POCT U KETONE (test code = 3258) n/a Negative - Neg ative POCT U BLD (test code = 3257) n/a Negative - Negati ve [facility]/O SPECIFIC [id number] 14:26:00* Test Item Value Reference Range Interpretation Comme nts POCT PH U (test code = 3254) n/a 5-8 POCT U LEUK EST (test code = 3263) n/a Negative - Negative POCT U NIT (test code = 3262) n/a Negative - Negati ve POCT U PROT (test code = 3259) negative Negative - Negat delvis POCT U GLU (test code = 3256) negative Negative - Negati ve POCT U KETONE (test code = 3258) n/a Negative - Neg ative POCT U BLD (test code = 3257) n/a Negative - Negati ve [facility] URINALYSIS W/O SPECIFIC [id number] 14:26:00* Test Item Value Reference Range Interpretation Comme nts POCT PH U (test code = 3254) n/a 5-8 POCT U LEUK EST (test code = 3263) n/a Negative - Negative POCT U NIT (test code = 3262) n/a Negative - Negati ve POCT U PROT (test code = 3259) negative Negative - Negat delvis POCT U GLU (test code = 3256) negative Negative - Negati ve POCT U KETONE (test code = 3258) n/a Negative - Neg ative POCT U BLD (test code = 3257) n/a Negative - Negati ve [facility] URINALYSIS W/O SPECIFIC [id number] 16:04:00* Test Item Value Reference Range Interpretation Comme nts POCT PH U (test code = 3254) n/a 5-8 POCT U LEUK EST (test code = 3263) n/a Negative - Negative POCT U NIT (test code = 3262) n/a Negative - Negati ve POCT U PROT (test code = 3259) negative Negative - Negat delvis POCT U GLU (test code = 3256) negative Negative - Negati ve POCT U KETONE (test code = 3258) n/a Negative - Neg ative POCT U BLD (test code = 3257) n/a Negative - Negati ve [facility] URINALYSIS W/O SPECIFIC [id number] 16:04:00* Test Item Value Reference Range Interpretation Comme nts POCT PH U (test code = 3254) n/a 5-8 POCT U LEUK EST (test code = 3263) n/a Negative - Negative POCT U NIT (test code = 3262) n/a Negative - Negati ve POCT U PROT (test code = 3259) negative Negative - Negat delvis POCT U GLU (test code = 3256) negative Negative - Negati ve POCT U KETONE (test code = 3258) n/a Negative - Neg ative POCT U BLD (test code = 3257) n/a Negative - Negati ve [facility] URINALYSIS W/O SPECIFIC [id number] 16:10:00* Test Item Value Reference Range Interpretation Comme nts POCT PH U (test code = 3254) n/a 5-8 POCT U LEUK EST (test code = 3263) n/a Negative - N egative POCT U NIT (test code = 3262) n/a Negative - Negati ve POCT U PROT (test code = 3259) neg Negative - Negat delvis POCT U GLU (test code = 3256) neg Negative - Negati ve POCT U KETONE (test code = 3258) n/a Negative - Neg ative POCT U BLD (test code = 3257) n/a Negative - Negati ve [facility] URINALYSIS W/O SPECIFIC [id number] 20:26:00* Test Item Value Reference Range Interpretation Comme nts POCT PH U (test code = 3254) n/a 5-8 POCT U LEUK EST (test code = 3263) n/a Negative - Negative POCT U NIT (test code = 3262) n/a Negative - Negati ve POCT U PROT (test code = 3259) Negative Negative - Negat delvis POCT U GLU (test code = 3256) n/a Negative - Negati ve POCT U KETONE (test code = 3258) n/a Negative - Neg ative POCT U BLD (test code = 3257) n/a Negative - Negati ve [facility] URINALYSIS W/O SPECIFIC [id number] 20:26:00* Test Item Value Reference Range Interpretation Comme nts POCT PH U (test code = 3254) n/a 5-8 POCT U LEUK EST (test code = 3263) n/a Negative - Negative POCT U NIT (test code = 3262) n/a Negative - Negati ve POCT U PROT (test code = 3259) Negative Negative - Negat delvis POCT U GLU (test code = 3256) n/a Negative - Negati ve POCT U KETONE (test code = 3258) n/a Negative - Neg ative POCT U BLD (test code = 3257) n/a Negative - Negati ve [facility] [id number] 23:26:00* Test Item Value Reference Range Interpretation Comme nts POCT PREG (test code = 1605) Negative On board controls acceptable with C Line (test code = 3574) Yes POCT PREG LOT # (test code = 3575) POCT PREG TEST DATE ( test code = 3576) [facility] GRP A STREP (MOLECULAR)2020-12-04 21:55:00* Test Item Value Reference Range Interpretation Comme nts POCT GP A STREP (test code = 13610-5) negative Negative - Negative [facility] GRP A STREP (MOLECULAR)2020-12-04 21:55:00* Test Item Value Reference Range Interpretation Comme nts POCT GP A STREP (test code = 87669-2) negative Negative - Negative [facility] - ONCE [id number] 13:15:20* Test Item Value Reference Range Interpretation Comme nts ABO & RH (test code = 20) A Positive Performed at [facility] Blood [address] [place], [place] [id number] Free: [phone] No. [id number] IAT (test code = 1185) Negative Performed at [facility] Blood [address] [place], [place] [address]Toll Free: [phone] No. [id number] [facility] [id number] 12:03:00* Test Item Value Reference Range Interpretation Comme nts POCT PREG (test code = 1605) Negative On board controls acceptable with C Line (test code = 3574) Yes POCT PREG LOT # (test code = 3575) [id number] POCT PREG TEST DATE ( test code = 3576) .31 Lab Interpretation (test cod e = 60716-8) Normal [facility] WITH [id number] 14:52:00* Test Item Value Reference Range Interpretation Comme nts WBC (test code = 6690-2) See_Comment [Automated messa ge] The system which generated this result transmitted reference range: 4.30 - 11.10 10*3/?L. The reference range was not used to interpret this result as normal/abnormal. RBC (test code = 789-8) See_Comment [Automated messa ge] The system which generated this result transmitted reference range: 3.93 - 5.25 10*6/?L. The reference range was not used to interpret this result as normal/abnormal. HGB (test code = 718-7) 14.3 g/dL 11.6-15 HCT (test code = 4544-3) 44.6 % 35.7-45.2 MCV (test code = 787-2) 91.6 fL 80.6-95.5 MCH (test code = 785-6) 29.4 pg 25.9-32.8 MCHC (test code = 786-4) 32.1 g/dL 31.6-35.1 RDW-SD (test code = 61929-9) 44.7 fL 39-49.9 RDW-CV (test code = 788-0) 13.2 % 12-15.5 PLT (test code = 777-3) See_Comment [Automated messa ge] The system which generated this result transmitted reference range: 166 - 358 10*3/?L. The reference range was not used to interpret this result as normal/abnormal. MPV (test code = 75848-7) 10.3 fL 9.5-12.9 NRBC/100 WBC (test code = 6611891464) See_Comment [Automated me ssage] The system which generated this result transmitted reference range: 0.0 - 10.0 /100 WBCs. The reference range was not used to interpret this result as normal/abnormal. NRBC x10^3 (test code = 2900724835) <0.01 See_Comment [Automated messa ge] The system which generated this result transmitted reference range: 10*3/?L. The reference range was not used to interpret this result as normal/abnormal. GRAN MAT (NEUT) % (test code = 770-8) 51.3 % IMM GRAN % (test code = 7573568651) 0.40 % LYMPH % (test code = 736-9) 36.0 % MONO % (test code = 5905-5) 8.6 % EOS % (test code = 713-8) 1.9 % BASO % (test code = 706-2) 1.8 % GRAN MAT x10^3(ANC) (test code = 0990984847) 2.93 10*3/uL 1.88-7.09 IMM GRAN x10^3 (test code = 1271234755) <0.03 0-0.06 LYMPH x10^3 (test code = 731-0) 2.05 10*3/uL 1.32-3.29 MONO x10^3 (test code = 742-7) 0.49 10*3/uL 0.33-0.92 EOS x10^3 (test code = 711-2) 0.11 10*3/uL 0.03-0.39 BASO x10^3 (test code = 704-7) 0.10 10*3/uL 0.01-0.07 H Lab Interpretation (test code = 95315-8) Abnormal [facility] WITH [id number] 14:52:00* Test Item Value Reference Range Interpretation Comme nts WBC (test code = 6690-2) See_Comment [Automated messa ge] The system which generated this result transmitted reference range: 4.30 - 11.10 10*3/?L. The reference range was not used to interpret this result as normal/abnormal. RBC (test code = 789-8) See_Comment [Automated messa ge] The system which generated this result transmitted reference range: 3.93 - 5.25 10*6/?L. The reference range was not used to interpret this result as normal/abnormal. HGB (test code = 718-7) 14.3 g/dL 11.6-15 HCT (test code = 4544-3) 44.6 % 35.7-45.2 MCV (test code = 787-2) 91.6 fL 80.6-95.5 MCH (test code = 785-6) 29.4 pg 25.9-32.8 MCHC (test code = 786-4) 32.1 g/dL 31.6-35.1 RDW-SD (test code = 32218-2) 44.7 fL 39-49.9 RDW-CV (test code = 788-0) 13.2 % 12-15.5 PLT (test code = 777-3) See_Comment [Automated messa ge] The system which generated this result transmitted reference range: 166 - 358 10*3/?L. The reference range was not used to interpret this result as normal/abnormal. MPV (test code = 42605-7) 10.3 fL 9.5-12.9 NRBC/100 WBC (test code = 4873181265) See_Comment [Automated [employer] ssage] The system which generated this result transmitted reference range: 0.0 - 10.0 /100 WBCs. The reference range was not used to interpret this result as normal/abnormal. NRBC x10^3 (test code = 3439864455) <0.01 See_Comment [Automated messa ge] The system which generated this result transmitted reference range: 10*3/?L. The reference range was not used to interpret this result as normal/abnormal. GRAN MAT (NEUT) % (test code = 770-8) 51.3 % IMM GRAN % (test code = 5723421336) 0.40 % LYMPH % (test code = 736-9) 36.0 % MONO % (test code = 5905-5) 8.6 % EOS % (test code = 713-8) 1.9 % BASO % (test code = 706-2) 1.8 % GRAN MAT x10^3(ANC) (test code = 6647504329) 2.93 10*3/uL 1.88-7.09 IMM GRAN x10^3 (test code = 0037480962) <0.03 0-0.06 LYMPH x10^3 (test code = 731-0) 2.05 10*3/uL 1.32-3.29 MONO x10^3 (test code = 742-7) 0.49 10*3/uL 0.33-0.92 EOS x10^3 (test code = 711-2) 0.11 10*3/uL 0.03-0.39 BASO x10^3 (test code = 704-7) 0.10 10*3/uL 0.01-0.07 H Lab Interpretation (test code = 52143-0) Abnormal [facility] Notes Date/Time Note Provider Source 2023-03-11 21:41:57 Z2dur/DMXO7Hj2azEqsY 98OXg80UT4P1v R8suxXfxx099Ehp+VyiJBm58rQ85f3p15 19-03-15T21:41:57 Pt arrives ambulatory to ED reporting that she is 32 weeks , a pt of Dr Tavarez, and she began having contractions beginning @ aprox 1950 this evening. She also reports lower back pain and pressure in her groin area. 67466-6Wbxnuydlg department Triage xlihFU8523-10-16L69:44:07[facility] department Triage noteTXT1.2.840.519994.1.13.104.2. 7.2.868767|[id number] for patient xmtm10241-7Qcourzlza department [id number] L Williams RNUT[address] DcaiAtmpnpaveCplozinglINQX1507890 583ABDNDSBYBWKKDHQRJCNTSO2640-05- 15T21:44:071.2.840.053453.1.72.3. 15|1.2.840.779239.1.13.104.2.7.2. [id number] Malissa Mercado RN [facility] 2023-03-11 20:19:00 MocE5gQiqXLV+xifzflW EX0y3JAOtX3JA gMKouZCQ+0EavxOjlBuHV/QyN/aF/0620 19-03-15T20:19:00 Regardin wks - 3 contractions lasting 5-7 mins each x 1.5 hrs, legs/ankles swollen x 2.5 hr----- Message from Raegan Whitman sent at 03/11/2023 8:17 PM CDT -----Silvia Curtis is a 32 year old female 94112-5Uvphhzish encounter OunrDW6267-84-80F18:19:43Telephon e encounter NoteTXT1.2.840.648526.1.13.104.2. 7.2.755665|[id number] for patient ydcd13504-2MgcgHC646261284Btvh M Rea RN[address] PcnmDfyodpkusUacpxxxrtALGU9536291 630BUCVRAFDWUKFWGPFEJCRTL9031-24- 15T20:19:431.2.840.726479.1.72.3. 15|1.2.840.569256.1.13.104.2.7.2. [id number] Lisbeth Raymond RN [facility] 2023-03-11 20:19:00 K9bgbf0L2VtJxUrz2azw t9jF8JuZ1RZuF 6Zd5sH0D/aWKr2xuJvoC2Uz8TBETzMJ91 19-03-15T20:19:00 Triage AssessmentLast Clinic Visit: 03/09/2023 Primary Symptom: contractionsOnset / Duration: last 1.5 hoursLocation / Description: 3 in the last 1.5 hours; notes last about 7 minutes each - "stomach got really tight, then all the sudden it cheng felt like my vagina fell out - lot of pressure, lot of pressure down there"Pain / Severity: 6-7/10Associated Symptoms: legs and ankles and feet are swollen - patient notes sudden onset; increased vaginal pressure; "slight back pain"Fever / Method: deniesHydration: fluid intake 2 bottles, and a coke; last void after the last contractions around 2004 - denies burning/discomfort with urinationTreatment so far: deniesEffect on ADL's: lying down with the last contractionGestational Weeks: 20y7kDzzpgvd Membranes: deniesBleeding / Spotting / Pads per hour: deniesFetal Movement: "baby hasn't been as active, he is usually very super active around this time and he's barely moving around" - last movement noted 5 minutes agoPara / : X1K9YO2AQM: 05/05/2023re-existing condition / Immunocompromised: chronic pelvic pain in female; abdominal pain, left lower quadrant; endometriosis of the cul-de-dac; secondary dysmenorrhea; irregular bleeding, encased IUD; supervision of high-risk with insufficient care in second trimesterAdvice given per Abdominal Pain Greater Than 20 Weeks EGA Adult Protocol. Patient advised to go to L&D for further evaluation. Patient voices understanding and denies further needs at this time.2046 senior hris analyst provider notified of patient disposition.Reason for Disposition MODERATE-SEVERE abdominal pain (e.g., interferes with normal activities, awakens from sleep)Protocols used: - Abdominal Pain Greater Than 20 Weeks BSZ-TGXSQ-LKYhsvmpzgwipuqa signed by Lisbeth Raymond RN at 03/11/2023 8:52 PM GJR29933-7Faibiorko encounter SzgyWN8905-87-31M06:52:00Telephon e encounter NoteTXT1.2.840.343883.1.13.104.2. 7.2.202635|[id number] for patient gaue35008-2VdrzJUQDCYWOKT[address] NiblSqfstxnzwPhccnvhuyHIBW9508267 395CFYCSBMBUGREVTKKGIVMTD5197-84- 15T20:52:001.2.840.009666.1.72.3. 15|1.2.840.518838.1.13.104.2.7.2. [id number] [facility] 2023-03-09 09:00:00 EKSQsqh9hr9/484ItEjG f/mhfAcvfst0O i4+XlEV+NqFeIFd/TWbdqhoLqQTJaHg16 19-03-13T09:00:00 Age: 32 year oldGA: 31w6d 1. Supervision of high-risk with insufficient care in third trimester2. 31 weeks gestation of - Was sick last week, seems like something viral but is feeling much better now- PTL precautions and FKC's reviewed with patientMonitor for vaginal bleeding, loss of fluid, and/or contractions- Monitor for symptoms of preeclampsia (headache, visual disturbances, epigastric (under right ribs) pain, and increased blood pressure- If there is a perceived decrease in movement, monitor kick counts. Drink glass of water or juice and rest on left side for approximately two hours. If you feel 10 kicks (movements) over a period of two hours, this is normal. If you do not feel the fetus moving, present to OB clinic or antepartum [facility] at the [facility]- POCT URINALYSIS W/O SPECIFIC GRAVITY3. Vaginal discharge in in third trimester- c/o yellowish discharge with itching for 10 days - Findings on speculum consistent with yeast infection.- GC & CHLAMYDIA AMPLIFIED ASSAY; Future- GALV ONLY - VAGINAL PATHOGENS BY NUCLEIC ACID TESTING; Future- GC & CHLAMYDIA AMPLIFIED ASSAY- GALV ONLY - VAGINAL PATHOGENS BY NUCLEIC ACID TESTING- terconazole 0.4 % vaginal cream; Insert 1 Applicator into vagina at bedtime. Insert every night for 7 nights Dispense: 45 g; Refill: 0ROB in 2 weeks [place] [address]-1Czkleiim fkybUG4665-92-40D28:45:18Progress noteTXT1.2.840.365836.1.13.104.2. 7.2.070149|[id number] for patient lalr41377-8IlbvWSVTIWYJQN[address] KiixObjqvrjyeWgfkcdbmnPWEA3963786 281IWEDHBKYBQMQNVJRQRUOZY8299-07- 13T09:45:181.2.840.107351.1.72.3. 15|1.2.840.808041.1.13.104.2.7.2. 727879_[id number] [facility] 2023-02-25 16:30:55 MgL5Vb5vSwrUAHVZtmyu 0+71XCcP2uHfe cn+VInDTrg317FeJORnfpcilM531DCH04 19-03-01T16:30:55 Spoke with patient, informed her I wasn't sure who or why she was contacted. No other questions or concerns expressed.January Carpenter RN 02/25/2023 4:37 PM 11957-4Rqzcqjkkq encounter RvqzXL0952-41-94Q56:37:16Telephon e encounter NoteTXT1.2.840.737568.1.13.104.2. 7.2.755502|[id number] for patient ypiz96261-8FzkbXN798597172Byxznss Stahl RN[address]vdGalvestonGalvestonTXTX[address] 988ANTAHTLMODLNQIAWTNVGTZ8424-93- 01T16:37:161.2.840.166067.1.72.3. 15|1.2.840.275964.1.13.104.2.7.2. 727879_[id number] January Carpenter RN [facility] 2023-02-25 15:15:36 ZLvdeIyBsePzKab920PG PGwev5YN3LVQI m89Ky31vv626cmyCWhbKIytdLPR5yiG52 19-03-01T15:15:36 Pt returning call to clinic 04470-5Ekzysbfku encounter SnkmIQ2467-72-54A46:17:12Telephon e encounter NoteTXT1.2.840.622192.1.13.104.2. 7.2.531668|[id number] for patient iesc68122-8DshnGK276154642Zfuft C [address]TXTX[address] 880XTNRMWAVMMSPFTDKHCWOON5204-71- 01T15:17:121.2.840.199593.1.72.3. 15|1.2.840.122390.1.13.104.2.7.2. 727879_[id number] [facility] 09:00:00 TiAnggi+XBW3UeMzaJjX DcQ5XeRT2cQ0r bmXHS2liXXzgCdZu55iQCx3XZejMjme62 17-02-28T09:00:00 Name, and orders/provider verified.50g of FP Glucola given at 0953, finished at 0958. 90359-1Cfxdy WjwqYS6738-92-48I45:59:58Nurse NoteTXT1.2.840.248136.1.13.104.2. 7.2.090685|[id number] for patient tpdu17551-9Qydzf [address]TXTX[address] 234SHLJSZVXMMCURGVOAWICID3351-74- 28T09:59:581.2.840.785659.1.72.3. 15|1.2.840.124028.1.13.104.2.7.2. 727879_[id number] [facility] 2023-02-21 09:00:00 FVQaky0eGFHvKYTdoiKx Iu9HWtv7v5OpW SRRqDHibf602oTgF6NJuY62eKgSSXpc72 17-02-28T09:00:00 Images from the original note were not included.Venipuncture collection performed by clean technique on the left anticubitus. Total of 2 attempts were made. Slight pressure and a bandage/dressing were applied to the site(s). The patient experienced no complications. The following specimens were processed according to instructions and sent to [facility] laboratories per lab order on TODAY: LT BLUE SST 2 RED LAV PPT DK GREEN (LiHep) DK GREEN (SodH) ROSALES DK BLUE (K2) DK BLUE (S) ACD Blood Culture NIPT/NTD 69686-3Kcxfr BrxqYG5092-50-16B41:59:14Nurse NoteTXT1.2.840.439870.1.13.104.2. 7.2.629153|[id number] for patient otfs58267-4Hufra NoteLNUT[address] RguhPbewsluuzYoyhisqqfPWZB5176299 880QOPWNVHQGIGKCMNALTZGZH3650-47- 28T10:59:141.2.840.437165.1.72.3. 15|1.2.840.684081.1.13.104.2.7.2. 727879_[id number] [facility] 2023-02-16 11:15:00 +mTzBxRLMa1EFZ3zK4JX czxDcDdSuWtyp mKKV93ImpL796j0lJCiW+hXvjsltB8627 16-02-23T11:15:00 Age: 32 year oldGA: 28w6d 1. Supervision of high-risk with insufficient care in third trimester2. 28 weeks gestation of ourfndavb0bj trimester teaching done- reviewed S/S of PTL (contractions, leakage of fluid and Vaginal bleeding) and also FKC.Also dicussed B-H, pelvic and lower back pains- expectations and differences with S/S of PTLShe plans to breast feedBC options reviewed- DepoPeds: Dr Heaton- ALICIA-She just got her initial OB done 4 weeks ago, so will order Glucola that wasn't done- POCT URINALYSIS W/O SPECIFIC GRAVITY- TDAP VACCINE, >10 YRS, IM- URINE DRUG (IMMUNOASSAY) - COMPREHENSIVE DRUG SCREEN; Future- URINE DRUG (IMMUNOASSAY) - COMPREHENSIVE DRUG SCREEN- GLUCOSE 1 HOUR POST PRANDIAL; Future- RUBELLA SCREEN IGG; Future3. Drug use complicating in third trimester- URINE DRUG (IMMUNOASSAY) - COMPREHENSIVE DRUG SCREEN; Future- URINE DRUG (IMMUNOASSAY) - COMPREHENSIVE DRUG SCREEN4. Anxiety in , antepartum, third trimester-Reports mood is stable in general and she has her days-EPDS is 14. Still not interested in intervention- Precautions reviewed with patientROB [place] 2 [place] [address]-4Weogszay oifjEX3487-56-88Q09:53:22Progress noteTXT1.2.840.527983.1.13.104.2. 7.2.785529|[id number] for patient jtrv77404-1UgspQKJHXOKJGY[address] FxrgUhcyihocfEotdxrratMKMJ1150212 415ZUNTYCJCUVBBRVUBXRAGAK4041-84- 23T11:53:221.2.840.780804.1.72.3. 15|1.2.840.430282.1.13.104.2.7.2. 727879_[id number] [facility] 2023-02-03 10:49:48 luIy0WKEASNeIW5Pc3oL yEVo81oMccAnk e3Wbwq9+7+AzwojJ1Txnc52o3U2uRwF51 16-02-10T10:49:48 Returned patients call. Patient states she has had a fever on and off the past couple of days. Patient denies any other symptoms. Patient states she wants to move her appointment due to having a fever. Patient appointment moved to 02/09. Conrad Adamson RN 02/03/2023 10:56 AM 83271-3Meqbgyofr encounter JwbaMQ4134-75-16F11:01:28Telephon e encounter NoteTXT1.2.840.032996.1.13.104.2. 7.2.049171|[id number] for patient sink52651-8ThzxOH233332540Xendvjw Collins [address]TXTX[address] 063DGLWAYRVCTOVICBVBTDAWX8984-05- 10T11:01:281.2.840.376772.1.72.3. 15|1.2.840.705215.1.13.104.2.7.2. 727879_[id number] Conrad Adamson RN [facility] 2023-02-03 09:44:30 gpGrjWtVbAcOzEjsvajh DKbf7Msq5ZlxA 9d0yg/0Duq5cRxzHJ4EySemcR1imhm/20 16-02-10T09:44:30 Pt called and stated that she woke up with a fever. Pt would like to speak to a nurse PADMINI. Pt also would like to know if she can reschedule for February 09, after or before her ultrasound. Please advise 14052-5Svzanrksi encounter QpkvHR3573-18-44G49:46:34Telephon e encounter NoteTXT1.2.840.189187.1.13.104.2. 7.2.312785|[id number] for patient drfk17309-1FvzkQJ840844741Rtggnm [id number] 430MCYGCYGMDFOLLIENVCLCMG9896-90- 10T09:46:341.2.840.216350.1.72.3. 15|1.2.840.655474.1.13.104.2.7.2. [id number] Nando Becker [facility] 2022-12-22 09:23:54 8Jftj14YLTwdmwbiknsa H8riVvBlYHJ90 iUiXVhPqo+77Hfd6UIj1GyomVX4sQh577 18-12-27T09:23:54 Fax from [facility], put on provider desk 39797-9Jnymkxzux encounter OavdVR9938-98-54N68:29:39Telephon e encounter NoteTXT1.2.840.175096.1.13.104.2. 7.2.935635|[id number] for patient ostj42732806Kxgu [address] [place] RwlvLnnzzvitpOgarcfdrsVHFI4283608 061CWZWSATEUZKCHONLONDYWS5967-78- 28T09:29:391.2.840.759089.1.72.3. 15|1.2.840.474684.1.13.104.2.7.2. [id number] Ruthann Davila [facility]
[2023-08-02 15:59] LABS: Absolute Lymphocytes (CBC) 1.7 K/uL (0.7-4.9); Hematocrit 34.7 % (36.0-45.0); MCV 83.7 fL (80-100); MPV 7.9 fL (7.6-11.3); Platelets 342 thou/uL (152-406); RBC Red Blood Cell Count 4.15 M/uL (3.86-4.86)
[2023-08-02 16:18] LABS: ALT/SGPT 19 U/L (13-56); AST/SGOT 19 U/L (15-37); Albumin 2.9 g/dL (3.4-5.0); Alkaline Phosphatase 65 U/L (45-117); BUN Blood Urea Nitrogen 5 mg/dL (7-18); Bicarbonate 29 mEq/L (21-32); Bilirubin Direct 0.1 mg/dL (0-0.2); Bilirubin Total 0.1 mg/dL (0.2-1.0); Glomerular Filtration Rate 92 ml/min (=/>90); Glucose Level 82 mg/dL (74-106); Potassium 3.1 mEq/L (3.5-5.1); Protein, Total 6.3 g/dL (6.4-8.2); Sodium Level 141 mEq/L (136-145)
[2023-08-02 16:23] LABS: Protime INR 1.11
--- NOTE | 2023-08-02 17:33 | ER ---
Nurse's Notes [facility] Name: Rhona Curtis Age: 32 yrs Sex: Female : 1990 Arrival Date: 08/02/2023 Time: 15:31 Bed 4 Private MD: Diagnosis: Adverse effect of other narcotics;Acute respiratory failure-drug, FENTANYL;Migraine without aura, not intractable;Abuse of other non-psychoactive substances Presentation: 08/02 15:35 Chief complaint: EMS states: Pt took a Percocet and became unresponsive, family called rs5 PD who adm narcan. 15:35 Coronavirus screen: At this time, the client does not indicate any symptoms associated rs5 with coronavirus-19. Ebola Screen: No symptoms or risks identified at this time. Initial Sepsis Screen: Does the patient meet any 2 criteria? No. Patient's initial sepsis screen is negative. Does the patient have a suspected source of infection? No. Patient's initial sepsis screen is negative. Risk Assessment: Do you want to hurt yourself or someone else? Patient reports no desire to harm self or others. Onset of symptoms was November 27, 2023. Care prior to arrival: Medication(s) given: narcan. 15:35 Method Of Arrival: EMS: [place] [id number] 15:35 Acuity: [place] 3 rs5 Triage Assessment: 15:35 General: Appears in no apparent distress. uncomfortable, Behavior is calm, cooperative. rs5 Historical: - Allergies: 15:48 PENICILLINS; rs5 - PMHx: 15:48 Endometriosis; Migraines; rs5 - PSHx: 15:48 Tonsillectomy; rs5 - Immunization history:: Adult Immunizations unknown. - Social history:: Smoking status: Patient denies any tobacco usage or history of. - Family history:: not pertinent. Screenin:35 [facility] ED Fall Risk Assessment (Adult) History of falling in the last 3 months, rs5 including since admission No falls in past 3 months (0 pts) Confusion or Disorientation No (0 pts) Intoxicated or Sedated Yes (3 pts) Impaired Gait No (0 pts) Mobility Assist Device Used No (0 pt) Altered Elimination No (0 pt) Score/Fall Risk Level 0 - 2 = Low Risk Oriented to surroundings, Maintained a safe environment. 15:35 Abuse screen: Denies threats or abuse. Nutritional screening: No deficits noted. rs5 Tuberculosis screening: No symptoms or risk factors identified. Assessment: 15:35 General: Appears in no apparent distress. uncomfortable, Behavior is calm, cooperative. rs5 Pain: Complains of pain in head Pain does not radiate. Pain currently is 5 out of 10 on a pain scale. Quality of pain is described as aching, Pain began 2 hours ago. Is continuous. Neuro: Level of Consciousness is awake, alert, obeys commands, Oriented to person, place, time, situation. Cardiovascular: Rhythm is regular. Respiratory: Airway is patent Respiratory effort is even, unlabored, Respiratory pattern is regular, symmetrical. 15:35 GI: Abdomen is round non-distended, Abd is soft and non tender X 4 quads. : No signs rs5 and/or symptoms were reported regarding the genitourinary system. EENT: No signs and/or symptoms were reported regarding the EENT system. Derm: Skin is intact, Skin is dry, Skin is normal, Skin temperature is warm. Musculoskeletal: Circulation, motion, and sensation intact. Range of motion: intact in all extremities. 16:40 Reassessment: Patient and/or family updated on plan of care and expected duration. Pain rs5 level reassessed. Patient is alert, oriented x 3, equal unlabored respirations, skin warm/dry/pink. Patient states feeling better. Patient states symptoms have improved. 17:39 Reassessment: D/C pending completion of IV antibiotics, see MAR. ph Vital Signs: 15:35 BP 112 / 78; Pulse 70; Resp 17; Pulse Ox 99% on R/A; rs5 16:20 BP 118 / 81; Pulse 72; Resp 18; Temp 97.8(O); Pulse Ox 98% on R/A; rs5 17:40 BP 121 / 79; Pulse 77; Resp 18; Pulse Ox 99% on R/A; rs5 18:20 BP 115 / 77; Pulse 76; Resp 18; Pulse Ox 99% on R/A; rs5 ED Course: 15:32 Patient arrived in ED. bd 15:33 Ramón Mccain MD is Attending Physician. leonila 15:35 Patient has correct armband on for positive identification. Placed in gown. Bed in low rs5 position. Call light in reach. Side rails up X2. 15:35 Arm band placed on right wrist. rs5 15:36 Evens Abad, RN is Primary Nurse. rs5 15:40 No provider procedures requiring assistance completed. rs5 15:48 Triage completed. rs5 17:29 Dl Das MD is Referral Physician. leonila 17:38 Chest Single View In Process Unspecified. EDMS 17:48 INCENTIVE SPIROMETRY Sent. rs5 18:40 IV discontinued, intact, bleeding controlled, No redness/swelling at site. Pressure rs5 dressing applied. Administered Medications: 15:35 Drug: NS 0.9% IV 1000 ml IV at 1 bolus Per protocol; 1000 mL bolus Route: IV; Rate: 1 rs5 bolus; Site: left antecubital; 16:00 Follow up: Response: No adverse reaction rs5 15:40 Drug: Levalbuterol Inhalation 2.5 mg Inhalation once Route: Inhalation; rs5 16:04 Follow up: Response: No adverse reaction rs5 15:40 Drug: Ipratropium Inhalation Aerosol 0.5 mg Inhalation once Route: Inhalation; rs5 16:05 Follow up: Response: No adverse reaction rs5 16:50 Drug: Potassium PO Effervescent Tablet 50 mEq PO once; dissolve in 4 ounces of water or rs5 juice Route: PO; 17:10 Follow up: Response: No adverse reaction rs5 17:30 Drug: diphenhydrAMINE IVP 25 mg IVP once Route: IVP; Site: left antecubital; rs5 18:00 Follow up: Response: No adverse reaction rs5 17:40 Drug: levofloxacin IVPB 500 mg 100 ml IVPB once over 60 mins Volume: 100 ml; Route: rs5 IVPB; Infused Over: 60 mins; Site: left antecubital; 18:10 Follow up: Response: No adverse reaction rs5 17:40 Drug: Ketorolac IVP 30 mg IVP once Route: IVP; Site: left antecubital; rs5 18:01 Follow up: Response: No adverse reaction rs5 17:47 Drug: metoCLOPramide IVP 10 mg IVP once; over 1 to 2 minutes Route: IVP; Site: left rs5 antecubital; 18:10 Follow up: Response: No adverse reaction rs5 Medication: 15:35 VIS not applicable for this client. rs5 Outcome: 17:32 Discharge ordered by MD. keen 18:40 Discharged to home ambulatory, with family, rs5 18:40 Condition: stable 18:40 Discharge instructions given to patient, family, Instructed on discharge instructions, follow up and referral plans. medication usage, Demonstrated understanding of instructions, follow-up care, medications, Prescriptions given X 3, 18:42 Patient left the ED. rs5 Signatures: Dispatcher [employer] EDMS Pushpa Butcher Corey, MD MD cha Hall, Patricia, RN RN Evens Abad RN RN rs5 Corrections: (The following items were deleted from the chart) 15:49 15:48 PSHx: Tonsillectomy; rs5 rs5
--- NOTE | 2023-08-02 17:34 | EDPHYS ---
Physician Documentation [facility] Name: Rhona Curtis Age: 32 yrs Sex: Female : 1990 Arrival Date: 08/02/2023 Time: 15:31 Bed 4 Private MD: ED Physician Ramón Mccain HPI: 08/02 17:22 This 32 yrs old Female presents to ER via EMS with complaints of overdose, leonila respiratory arrest. 17:22 The patient has shortness of breath and the patient has a history of substance abuse. leonila Onset: The symptoms/episode began/occurred just prior to arrival. Duration: The symptoms are intermittent, with episodes lasting minutes at a time. The patient's shortness of breath has no apparent modifying factors. took fentanyl, respiratory arrest. The patient presents with trouble concentrating. Possible causes: drug use, narcotics. Severity of symptoms: At their worst the symptoms were severe incapacitating in the emergency department the symptoms have improved markedly. Historical: - Allergies: 15:48 PENICILLINS; rs5 - PMHx: 15:48 Endometriosis; Migraines; rs5 - PSHx: 15:48 Tonsillectomy; rs5 - Immunization history:: Adult Immunizations unknown. - Social history:: Smoking status: Patient denies any tobacco usage or history of. - Family history:: not pertinent. ROS: 17:22 Constitutional: Negative for fever, chills, and weight loss, Eyes: Negative for injury, leonila pain, redness, and discharge, ENT: Negative for injury, pain, and discharge, Neck: Negative for injury, pain, and swelling, Cardiovascular: Negative for chest pain, palpitations, and edema, Abdomen/GI: Negative for abdominal pain, nausea, vomiting, diarrhea, and constipation, Back: Negative for injury and pain, : Negative for injury, bleeding, discharge, and swelling, MS/Extremity: Negative for injury and deformity, Skin: Negative for injury, rash, and discoloration, Neuro: Negative for headache, weakness, numbness, tingling, and seizure, Psych: Negative for depression, anxiety, suicide ideation, homicidal ideation, and hallucinations, Allergy/Immunology: Negative for hives, rash, and allergies, Endocrine: Negative for neck swelling, polydipsia, polyuria, polyphagia, and marked weight changes, 17:22 Respiratory: Positive for cough, "sounds productive", shortness of breath, at rest. Exam: 17:22 Constitutional: This is a well developed, well nourished patient who is awake, alert, leonila and in no acute distress. Head/Face: Normocephalic, atraumatic. Eyes: Pupils equal round and reactive to light, extra-ocular motions intact. Lids and lashes normal. Conjunctiva and sclera are non-icteric and not injected. Cornea within normal limits. Periorbital areas with no swelling, redness, or edema. ENT: Nares patent. No nasal discharge, no septal abnormalities noted. Tympanic membranes are normal and external auditory canals are clear. Oropharynx with no redness, swelling, or masses, exudates, or evidence of obstruction, uvula midline. Mucous membranes moist. Neck: Trachea midline, no thyromegaly or masses palpated, and no cervical lymphadenopathy. Supple, full range of motion without nuchal rigidity, or vertebral point tenderness. No Meningismus. Chest/axilla: Normal chest wall appearance and motion. Nontender with no deformity. No lesions are appreciated. Cardiovascular: Regular rate and rhythm with a normal S1 and S2. No gallops, murmurs, or rubs. Normal PMI, no JVD. No pulse deficits. Respiratory: Lungs have equal breath sounds bilaterally, clear to auscultation and percussion. No rales, rhonchi or wheezes noted. No increased work of breathing, no retractions or nasal flaring. Abdomen/GI: Soft, non-tender, with normal bowel sounds. No distension or tympany. No guarding or rebound. No evidence of tenderness throughout. Back: No spinal tenderness. No costovertebral tenderness. Full range of motion. Skin: Warm, dry with normal turgor. Normal color with no rashes, no lesions, and no evidence of cellulitis. MS/ Extremity: Pulses equal, no cyanosis. Neurovascular intact. Full, normal range of motion. Neuro: Awake and alert, GCS 15, oriented to person, place, time, and situation. Cranial nerves II-XII grossly intact. Motor strength 5/5 in all extremities. Sensory grossly intact. Cerebellar exam normal. Normal gait. Psych: Awake, alert, with orientation to person, place and time. Behavior, mood, and affect are within normal limits. 17:22 ECG was reviewed by the Attending Physician. Vital Signs: 15:35 BP 112 / 78; Pulse 70; Resp 17; Pulse Ox 99% on R/A; rs5 16:20 BP 118 / 81; Pulse 72; Resp 18; Temp 97.8(O); Pulse Ox 98% on R/A; rs5 17:40 BP 121 / 79; Pulse 77; Resp 18; Pulse Ox 99% on R/A; rs5 18:20 BP 115 / 77; Pulse 76; Resp 18; Pulse Ox 99% on R/A; rs5 MDM: 15:33 Patient medically screened. leonila 17:27 Differential diagnosis: Anemia Bronchitis CHF exacerbation, Chronic Obstructive leonila Pulmonary Disease reactive airway disease. Antibiotic administration: The patient is discharged and will get outpatient antibiotics, Levaquin. Differential Diagnosis altered mental status, sepsis. Differential Diagnosis: hypoglycemia, overdose, pneumonia, seizure, volume depletion. Immunization status:. Data reviewed: vital signs, nurses notes, lab test result(s), EKG, radiologic studies, plain films. Consideration of Admission/Observation Escalation of care including admission/observation considered. I considered the following discharge prescriptions or medication management in the emergency department Medications were administered in the Emergency Department. See MAR. Independent interpretation of the following test(s) in the Emergency Department EKG: See my EKG interpretation above. Test considered but Not performed: CT: no ct head. Care significantly affected by the following chronic conditions: migraines, endometrosis. 08/02 15:34 Order name: Acetaminophen; Complete Time: 16:30 [facility] 08/02 15:34 Order name: Basic Metabolic Panel; Complete Time: 16:30 [facility] 08/02 15:34 Order name: CBC with Diff; Complete Time: 16:30 [facility] 08/02 15:34 Order name: ETOH Level; Complete Time: 16:30 [facility] 08/02 15:34 Order name: Hepatic Function; Complete Time: 16:30 [facility] 08/02 15:34 Order name: PT-INR; Complete Time: 16:30 [facility] 08/02 15:34 Order name: Ptt, Activated; Complete Time: 16:30 [facility] 08/02 15:34 Order name: Salicylate; Complete Time: 17:20 [facility] 08/02 17:01 Order name: Chest Single View; Complete Time: 17:49 EDMS 08/02 17:22 Order name: INCENTIVE SPIROMETRY [facility] 08/02 15:34 Order name: EKG; Complete Time: 15:34 [facility] 08/02 15:34 Order name: EKG - Nurse/Tech; Complete Time: 17:16 [facility] 08/02 15:34 Order name: IV Saline Lock; Complete Time: 17:16 [facility] 08/02 15:34 Order name: Labs collected and sent; Complete Time: 17:16 [facility] 08/02 15:34 Order name: Suicide Screening ([place]); Complete Time: 17:16 [facility] EC:22 Rate is 86 beats/min. Rhythm is regular. [place] interval is normal. QRS interval is normal. [facility] QT interval is normal. No Q waves. T waves are Normal. No ST changes noted. Clinical impression: Normal ECG and No evidence of ischemia. Interpreted by me. Reviewed by me. Administered Medications: 15:35 Drug: NS 0.9% IV 1000 ml IV at 1 bolus Per protocol; 1000 mL bolus Route: IV; Rate: 1 rs5 bolus; Site: left antecubital; 16:00 Follow up: Response: No adverse reaction rs5 15:40 Drug: Levalbuterol Inhalation 2.5 mg Inhalation once Route: Inhalation; rs5 16:04 Follow up: Response: No adverse reaction rs5 15:40 Drug: Ipratropium Inhalation Aerosol 0.5 mg Inhalation once Route: Inhalation; rs5 16:05 Follow up: Response: No adverse reaction rs5 16:50 Drug: Potassium PO Effervescent Tablet 50 mEq PO once; dissolve in 4 ounces of water or rs5 juice Route: PO; 17:10 Follow up: Response: No adverse reaction rs5 17:30 Drug: diphenhydrAMINE IVP 25 mg IVP once Route: IVP; Site: left antecubital; rs5 18:00 Follow up: Response: No adverse reaction rs5 17:40 Drug: levofloxacin IVPB 500 mg 100 ml IVPB once over 60 mins Volume: 100 ml; Route: rs5 IVPB; Infused Over: 60 mins; Site: left antecubital; 18:10 Follow up: Response: No adverse reaction rs5 17:40 Drug: Ketorolac IVP 30 mg IVP once Route: IVP; Site: left antecubital; rs5 18:01 Follow up: Response: No adverse reaction rs5 17:47 Drug: metoCLOPramide IVP 10 mg IVP once; over 1 to 2 minutes Route: IVP; Site: left rs5 antecubital; 18:10 Follow up: Response: No adverse reaction rs5 Disposition Summary: 08/02/23 17:32 Discharge Ordered Notes: Location: Home leonila Problem: new leonila Symptoms: have improved leonila Condition: Stable leonila Diagnosis - Adverse effect of other narcotics leonila - Acute respiratory failure - drug, FENTANYL leonila - Migraine without aura, not intractable leonila - Abuse of other non-psychoactive substances leonila Followup: leonila - With: Private Physician - When: 2 - 3 days - Reason: Recheck today's complaints, Continuance of care, Re-evaluation by your physician Followup: leonila - With: Dl Das MD - When: 2 - 3 days - Reason: Recheck today's complaints, Re-evaluation by your physician Discharge Instructions: - Discharge Summary Sheet leonila - Migraine Headache leonila - Substance Use Disorder leonila - How to Use an Incentive Spirometer leonila - Pneumonitis leonila - Aspiration Pneumonia, Adult leonila - Substance Use Disorder and Mental Illness leonila - Illegal Drug Use Information, Adult leonila - Supporting Someone With Substance Use Disorder leonila Forms: - Medication Reconciliation Form leonila - Thank You Letter leonila - Antibiotic Education leonila - Prescription Opioid Use leonila - Patient Portal Instructions [facility] - Leadership Thank You Letter [facility] Prescriptions: - Narcan 4 mg/actuation Nasal spray, non-aerosol - spray 1 spray INTRANASAL route every 2 to 3 minutes as needed for opioid leonila overdose; spray 1 dose into ONE nostril; alternate nostrils w each dose until help arrives; 1 unit; Refills: 0, Product Selection Permitted - albuterol sulfate 90 mcg/actuation Inhalation HFA Aerosol Inhaler - inhale 2 puff INHALATION route every 4 to 6 hours as needed for shortness of leonila breath or wheezing; 1 unit; Refills: 0, Product Selection Permitted - levofloxacin 500 mg Oral tablet - take 1 tablet ORAL route once daily for 7 days; 7 tablet; Refills: 0, Product [facility] Selection Permitted Signatures: Dispatcher [employer] EDRamón Arzola MD MD cha Sotelo, Ricky, RN RN rs5 Corrections: (The following items were deleted from the chart) 15:49 15:48 PSHx: Tonsillectomy; rs5 rs5 17:00 16:31 Chest Pa And Lat (2 Views)+[email or web address] ordered. EDMS EDMS
--- NOTE | 2023-08-02 17:47 | RAD REPORT ---
EXAM DESCRIPTION: RAD - Chest Single View - 08/02/2023 5:36 pm CLINICAL HISTORY: COUGH Chest pain. COMPARISON: <Comparisons> FINDINGS: Portable technique limits examination quality. Interstitial markings are prominent bilaterally. These are nonspecific but may indicate mild intersti tial pulmonary edema. The heart is normal in size. No displaced fractures.
--- NOTE | 2023-08-03 16:42 | EKG ---
Test Date: 2023-08-02 Test Time: 16:05:01 Treasury Consultant: WILEY MEASUREMENT RESULTS: Intervals: Rate: 86 MS: 148 QRSD: 80 QT: 374 QTc: 447 [place]: P: 37 MS: 148 QRS: 81 T: 53 INTERPRETIVE STATEMENTS: Normal sinus rhythm Normal ECG Compared to ECG 05/22/2020 19:45:45 Sinus tachycardia no longer present Electronically Signed On 08-03-23 16:40:55 RETAIL MANAGER IN TRAINING by Jordan Hull
== END ==
LOC: ER 15:31
DX: J96.00 Acute respiratory failure, unspecified whether with hypoxia or hypercapnia (principal); T40.415A Adverse effect of fentanyl or fentanyl analogs, initial encounter; F55.8 Abuse of other non-psychoactive substances; G43.009 Migraine without aura, not intractable, without status migrainosus; Z88.0 Allergy status to penicillin
CPT/HCPCS: 85025; 80048; 36415; 85610; 80076; 85730; 71045; 80143; 80179; 82077; J2765; J1200; J7614; J7644; J7030; 93005